=== PATIENT | male | born 1955 | race Caucasian/White ===

== ENCOUNTER → 2017-10-27 | Outpatient (CLI) | payer OTHER ==
[~2017-10-27] MED LIST: ASPIRIN EC325 M1 PO; BENADRYL25 MG PO; CELEBREX 200 M200 M1 PO; CENTRUM SILVER1 EAC4 PO; COLACE100 MG PO; GABAPENTIN 100100 MG PO; GLUCOSAMINE &1 EAC1 PO; HYDROCODON-ACE1 EAC7 PO; HYDROCODONE-AP1 EAC6 PO; IBUPROFEN 400400 M2 PO; LANSOPRAZOLE PO; METFORMIN HCL500 MG PO; MILK OF MA2400 MG/10 PO; MIRALAX17 GM PO; NAPROSYN500 MG PO; NEURONTIN 300300 M1 PO; NEURONTIN600 MG PO; NEXIUM40 MG PO; NORCO 10-325 T1 EACH PO; OXYCODONE HCL 55 MG PO; PERCOCET 5-3251 EACH PO; PERCOCET PO; VITAMIN B6 PO; XARELTO10 M1 PO; XARELTO10 MG PO; ZYRTEC10 MG PO
--- NOTE | 2017-11-04 15:40 | PAINCON ---
[address] [address] PAIN MANAGEMENT CONSULTATION Name: TABATHAKAREL Douglas Room: [facility]#: [id number] Admission: 10/27/17 Attend Phys: Edy Waddell MD Discharge: Date of : 51 Report #: [id number] THIS REPORT FOR: //name// CC: Yandel Waddell DATE OF SERVICE: 10/27/2017 FOLLOWUP HISTORY: The patient is a 61-year-old gentleman who has been seen in the Pain Clinic because of pain involving his low back, as well as some pain in his neck as well as bilateral foot pain. At this juncture, he has noted some worsening of his pain. He was at home doing some dusting activity. He noticed after dusting in some high places that he is having pain and discomfort, which is radiating down into his feet. Notes that this pain can worsen with prolonged walking. He has been treated in the past with epidural steroid injections and gleaned benefit from these. He generally gets greater than 50% relief after the injections. Last injection was in April 2017 where he received 60% benefit. He continues to take ibuprofen. Finds that gabapentin 600 mg is helpful. Still notes that activities such as carrying items for a prolonged time in his arms can exacerbate his discomfort. ALLERGIES: No known drug allergies. CURRENT MEDICATIONS: Nexium 40 mg daily, gabapentin 600 mg t.i.d., hydrocodone 5/325 one p.o. q. 4 hours p.r.n., ibuprofen 400 mg q. 6 hours p.r.n., metformin 500 mg b.i.d. PAIN CLINIC ASSESSMENT: 1. History of osteoarthritis: The patient states he is not being treated for osteoarthritis or rheumatoid arthritis. 2. Height 6 feet 0 inches, weight 220 pounds, BMI is 29. 3. Vital signs: Blood pressure 127/78, heart rate 52, respiratory rate is 16, room air saturation 96%, temperature 97.6. 4. Pain intensity: Rates the pain as 6/10. 5. Fall risk: The patient has not fallen in the last 3 months. 6. Blood thinner: The patient has not on a blood thinner. 7. History of hypertension: The patient states he is not being treated for hypertension. 8. Opioid therapy greater than 6 weeks. 9. Risk assessment tool. 10. Functional assessment tool. 11. Recreational drug use: Denies use of recreational drugs. 12. Tobacco: Denies use of tobacco at this juncture. He did smoke 34 years ago, developed chronic bronchitis and stopped. 13. Alcohol: Drinks one [place] [address] PAIN MANAGEMENT CONSULTATION Name: KAREL MAYS Room: [facility]#: [id number] Admission: 10/27/17 Attend Phys: Edy Waddell MD Discharge: Date of : 51 Report #: [id number] PHYSICAL EXAMINATION: GENERAL: The patient is a well-developed white male, who appears his stated age. Orientation: The patient is alert and oriented x 3. Affect: The patient's affect is appropriate. Speech is fluent. HEENT: Normocephalic, atraumatic. Extraocular eye muscles intact. Hearing is within normal limits. Conjunctivae are clear. Mucous membranes are moist. NECK: With some increased pain and discomfort in the neck with some decreased range of motion with left and right lateral bending, left and right lateral rotation, flexion, and extension. The neck is without JVD or adenopathy. CHEST: Clear to auscultation without rales. HEART: Regular rate. ABDOMEN: Nontender. MUSCULOSKELETAL: Without significant kyphosis, scoliosis, or lordosis. Upper extremities, strength is judged 5/5. The patient has some increased discomfort with a positive Spurling test. Cervical provocation testing including extension, rotation, left lateral flexion are met with increased pain, mild to moderate restriction. ASSESSMENT: 1. Cervical radiculopathy. 2. History of lumbar radiculopathy. 3. Cervical spinal stenosis, severe. 4. Displacement of cervical intervertebral disk with radiculopathy. 5. Cervical spondylosis with radiculopathy. 6. Neuropathy of the feet. 7. Diabetes, well controlled sugar with A1c 5.3. RECOMMENDATIONS: The patient has noticed some worsening of his pain after dusting. He is having some dull pain in his neck, which has increased. He has had similar pain in the past, which improved after a cervical epidural steroid injection. The patient will return at which time we will consider an additional cervical epidural steroid injection. The patient states that overall he has lost about 75 pounds. He has exercised more. A1c is in better shape at this juncture, it was 11.8 in the past, and it is down to 5.3. He used to trace blood sugars. He will return to the Pain Clinic, at which time he will undergo a cervical epidural steroid injection or a lumbar epidural steroid injection if his back is more problematic at this juncture. He will call us if he has any problems with his medications. We discussed the possible complications of epidural steroid injections. They can include increased blood sugars. The patient states that his blood sugar has been doing pretty well. He may even stop taking the Glucophage medicine in the future if his blood sugars remain normal. [facility] [address] [place] [address] PAIN MANAGEMENT CONSULTATION Name: KAREL MAYS Room: [facility]#: [id number] Admission: 10/27/17 Attend Phys: Edy Waddell MD Discharge: Date of : 51 Report #: [id number] We would like to thank you for letting us participate in his care. We hope he continues to improve. <ELECTRONICALLY SIGNED> By: Edy Waddell MD 11/04/17 1540 0005 [id number]. Leopoldo Waddell MD /PMT
== END ==
LOC: M.PC 03:03
DX: M47.22 Other spondylosis with radiculopathy, cervical region (principal); E11.9 Type 2 diabetes mellitus without complications; M48.02 Spinal stenosis, cervical region; G62.9 Polyneuropathy, unspecified

== ENCOUNTER → 2017-11-05 | Outpatient (CLI) | payer OTHER ==
--- NOTE | 2017-11-17 08:16 | PAINCON ---
[address] [address] PAIN MANAGEMENT CONSULTATION Name: KAREL MAYS Room: [facility].#: [id number] Admission: 11/05/17 Attend Phys: Edy Waddell MD Discharge: Date of : 51 Report #: [id number] THIS REPORT FOR: //name// CC: Yandel Waddell DATE OF SERVICE: 11/05/2017 CHIEF COMPLAINT: Pain in the lower portion of the back. "I have had some pain in my neck, but the back pain is worse." FOLLOWUP HISTORY: The patient is a 61-year-old gentleman who has been seen and followed in the pain clinic in the past because of cervical radiculopathy. He also has back pain and back problems. He has been experiencing pain in the lower portion of his back and down into his feet. He gleaned improvement by about 50%-60% after the cervical epidural steroid injection on 10/27/2017. He has continued to find benefit from that procedure. He has less headaches. At this juncture, he is experiencing pain, which radiates down into his low back and into his feet bilaterally. Epidural steroid injections in the past have been beneficial in that realm. At this point, he would like to proceed with another injection. He notes that activities such as walking, sitting, standing for a prolonged period of time exacerbates the pain and discomfort he is having in his lower back. Continues to use ibuprofen p.r.n. and gabapentin to help with pain control. ALLERGIES: No known drug allergies. CURRENT MEDICATIONS: Nexium 40 mg daily, gabapentin 600 mg t.i.d., hydrocodone 5/325 one p.o. q.4 hours p.r.n., metformin 500 mg b.i.d., ibuprofen 400 mg q. 6 hours p.r.n. pain. PAIN ASSESSMENT: 1. History of osteoarthritis. The patient has arthritic symptomatology in his lower back and neck area. 2. Height 6 feet, weight 215 pounds, BMI is 29. 3. Vital signs: Blood pressure 122/70, pulse 52, respiratory rate 16, room air saturation 95%, temperature 98.4. 4. Pain intensity is 5/10. 5. Fall risk. The patient has not fallen in the last 3 months. 6. Blood thinner. The patient is not on a blood thinner. 7. History of hypertension. The patient is not being treated for hypertension. 8. Opioid therapy greater than 6 weeks. The patient is not on opioid therapy greater than 6 weeks. 9. Risk assessment tool. 10. [place] [address] PAIN MANAGEMENT CONSULTATION Name: KAREL MAYS Room: [facility]#: [id number] Admission: 11/05/17 Attend Phys: Edy Waddell MD Discharge: Date of : 51 Report #: [id number] 11. Recreational drug use. Denies use of recreational drugs. 12. Tobacco. Denies use of tobacco, has not smoked in 34 years. 13. Alcohol: The patient drinks 1 glass of red wine weekly. PHYSICAL EXAMINATION: GENERAL: The patient is a well-developed white male, appears his stated age. He is alert and oriented x 3. Affect is appropriate. Speech is fluent. HEENT: Normocephalic, atraumatic. Extraocular eye muscles intact. Sclerae is nonicteric. Hearing is within normal limits. Mucous membranes are moist. NECK: The patient has some increased pain and discomfort in his neck with decreasing range of motion with left and right lateral bending, left and right lateral rotation, flexion and extension. HEART: Regular rate, normal S1, S2. LUNGS: Clear to auscultation without rales or rhonchi. ABDOMEN: Nontender. MUSCULOSKELETAL: Without significant kyphosis, scoliosis, or lordosis. Muscle strength in the upper extremities, judged to be 5/5. The patient has note of changes in his index finger areas with cold temperatures. Notes that the fingers can go from white to purple to red. LOW BACK: The patient has some pain radiating down into the posterior portion of his low back with pain radiating down into the right calf and involving both feet. IMPRESSION: 1. Lumbar radiculopathy. 2. History of cervical radiculopathy. 3. Cervical spinal stenosis/severe. 4. Displacement of cervical intervertebral disk with radiculopathy. 5. Cervical spondylosis with radiculopathy. 6. Neuropathy of feet. 7. Diabetes - well controlled with A1c of 5.3. 8. Raynaud's syndrome involving index fingers of left and right hand. RECOMMENDATIONS: We discussed treatment options with the patient. Risks and benefits of an epidural steroid injection were again reviewed. Possible complication of the procedure were discussed. The patient continues to have pain and discomfort in the L4-L5 distribution. We discussed injecting this area. Possible complication of the procedure, which could include but are not limited to infection, increased muscle soreness, headache, bleeding, worsening of pain, nerve damage, paralysis, and the patient elects to proceed. PROCEDURE NOTE: The patient was taken to the treatment area. He was then helped on the examination table. His back in the lower area was sterilely prepped with Betadine. 0.25% bupivacaine was then infiltrated at the L4-L5 interspace. Appropriate targeting was provided using anterior, posterior as well as lateral use of fluoroscopy. This area was then infiltrated with 0.25% [place] [address] PAIN MANAGEMENT CONSULTATION Name: KAREL MAYS Room: [facility]#: [id number] Admission: 11/05/17 Attend Phys: Edy Waddell MD Discharge: Date of : 51 Report #: [id number] bupivacaine. Total of 80 mg Depo-Medrol, 40 mg triamcinolone was injected. The patient tolerated the procedure well. There were no complications. He remained in the pain clinic for an appropriate amount of time. He will follow up in the future as needed. We would like to thank you for letting us participate in his care. We hope he continues to improve. <ELECTRONICALLY SIGNED> By: Edy Waddell MD 11/17/17 0816 1804 [id number]. Leopoldo Waddell MD /[facility]
== END | disposition home or self-care (01) ==
LOC: M.PC 01:29
DX: M54.16 Radiculopathy, lumbar region (principal); M48.02 Spinal stenosis, cervical region; M50.10 Cervical disc disorder with radiculopathy, unspecified cervical region; M47.22 Other spondylosis with radiculopathy, cervical region; E11.9 Type 2 diabetes mellitus without complications; I73.00 Raynaud's syndrome without gangrene; Z79.891 Long term (current) use of opiate analgesic; Z79.899 Other long term (current) drug therapy; Z98.890 Other specified postprocedural states

== ENCOUNTER → 2018-01-07 | Outpatient (CLI) | payer OTHER ==
--- NOTE | 2018-01-21 15:18 | PAINCON ---
[address] [address] PAIN MANAGEMENT CONSULTATION Name: KAREL MAYS Room: [facility].#: [id number] Admission: 01/07/18 Attend Phys: Edy Waddell MD Discharge: Date of : 53 Report #: [id number] THIS REPORT FOR: //name// CC: Yandel Waddell DATE OF SERVICE: 01/07/2018 FOLLOWUP COMPLAINT: "The pain improved in the past, but now, it has started to return. I would like to have another injection." FOLLOWUP HISTORY: The patient is a 62-year-old gentleman who has been followed in the Pain Clinic because of chronic pain. He has a history of cervical radiculopathy. At this juncture, he also has lumbar radiculopathy. He feels that the cervical portion is reasonably good at this point. Notes that the pain that is most problematic is that in his lower back with pain radiating down into his legs. He underwent an epidural steroid injection at the last visit, gleaned greater than 50-60% improvement. At this juncture, he would like to proceed with another lumbar epidural steroid injection. He has had no complications from them. He has not noted any significant changes or problems with his blood sugars. He continues to have some bilateral foot pain and discomfort. Also, he has bilateral knee pain. He is having some tingling in his calves bilaterally as well as some tingling in his feet. He has noted some sharp and shooting discomfort in the past. He continues to exercise. He continues to work on weight loss. Rates his pain and discomfort as a 3-4 with no activity. Feels that the gabapentin is helpful as well as [place], not having any problems with withdrawal or problems with his sensorium. He does note that if he goes from a sitting to a standing position quickly or from a stooping/squatting position to stand up, he sometimes notes a little bit of orthostatic change. Notes that if he does move slower, that is not problematic. ALLERGIES: No known drug allergies. CURRENT MEDICATIONS: Nexium 40 mg daily, gabapentin 600 mg t.i.d., hydrocodone 5/325 one p.o. q. 4-6 hours. p.r.n., metformin 500 mg b.i.d., ibuprofen 400 mg q. 6 hours p.r.n. PAIN ASSESSMENT: 1. The patient notes some arthritic changes in his neck as well as some in his knees. 2. Height 6 feet, weight 203 pounds, BMI is 27. 3. Vital signs: Blood pressure 106/69, heart rate 65, respiratory rate 16, room air saturation 97%, temperature 98.1. 4. Pain intensity: 3-4/10. 5. Fall risk: The patient has not fallen in the last 3 [place] [address] PAIN MANAGEMENT CONSULTATION Name: KAREL MAYS Room: [facility]#: [id number] Admission: 01/07/18 Attend Phys: Edy Waddell MD Discharge: Date of : 51 Report #: [id number] 6. Blood thinner: The patient is not on a blood thinning medication. 7. Hypertension: The patient is not being treated for hypertension. 8. Opioid therapy greater than 6 weeks: The patient is on some opioid medications and receives his medications from one source. 9. Risk assessment tool. 10. Functional assessment tool. 11. Recreational drug use: The patient denies use of recreational drugs. 12. Tobacco: The patient denies use of tobacco and has not smoked in the last 3-4 years. 13. Alcohol: The patient drinks one glass of alcoholic beverage, red wine, weekly. PHYSICAL EXAMINATION: GENERAL: The patient is a well-developed, well-nourished white male. He appears his stated age. He is alert and oriented x 3. His speech is fluent. HEENT: Normocephalic, atraumatic. Extraocular eye muscles intact. Sclerae nonicteric. Hearing within normal limits. Mucous membranes are moist. NECK: The patient has some pain and discomfort in his neck, but today, not having much discomfort. HEART: Regular rate. Normal S1, S2. LUNGS: Clear to auscultation without rales or rhonchi. ABDOMEN: Nontender. MUSCULOSKELETAL: Without significant kyphosis, scoliosis or lordosis. His muscle strength in the upper extremity is judged to be 5/5. The patient has noted less changes of color in his fingers because the weather has improved and it is much warmer. LOW BACK: The patient has pain that is radiating down the posterior portion of his legs bilaterally into the calf and into both feet. IMPRESSION: 1. Lumbar radiculopathy. 2. History of cervical radiculopathy. 3. Cervical spinal stenosis, severe. 4. Displacement of cervical intervertebral disk with radiculopathy. 5. Cervical spondylosis with radiculopathy. 6. Neuropathy of feet. 7. Diabetes, well controlled with A1c in the past. 8. Raynaud's syndrome involving fingers, less problematic given that the temperatures are greater than 80 degrees outside. RECOMMENDATIONS: We discussed treatment options with the patient. Risks and benefits of an epidural steroid injection were again reviewed. Possible complications which could include infection, increased muscle soreness, postdural puncture headache, muscle weakness, improvement, no improvement, and paralysis were discussed. The [place] [address] PAIN MANAGEMENT CONSULTATION Name: KAREL MAYS Room: [facility]#: [id number] Admission: 01/07/18 Attend Phys: Edy Waddell MD Discharge: Date of : 51 Report #: [id number] PROCEDURE NOTE: The patient was taken to the treatment area. He was assisted in getting on the table. His back was sterilely prepped with a Betadine solution. Fluoroscopy using anterior and posterior as well as lateral imaging were used to evaluate the appropriate placement of the needle. At L4-L5, 0.25% bupivacaine was infiltrated. A 17-gauge Tuohy with loss of resistance technique was used to gain access to the epidural space. There was no CSF, heme or paresthesia. A midline approach was used. A total of 80 mg of Depo-Medrol, 40 mg of triamcinolone and 2 mL of 0.25% bupivacaine was injected. The patient tolerated the procedure well. There were no complications. He remained in the Pain Clinic for an appropriate amount of time. He will follow up in the future as needed. The patient states that he may consider cervical epidural steroid injection in the future if needed. <ELECTRONICALLY SIGNED> By: Edy Waddell MD 01/21/18 1518 0936 [id number]. MD wanda Zurita
== END | disposition home or self-care (01) ==
LOC: M.PC 01:07
DX: M54.16 Radiculopathy, lumbar region (principal); G89.29 Other chronic pain; M48.02 Spinal stenosis, cervical region; M47.22 Other spondylosis with radiculopathy, cervical region; M50.10 Cervical disc disorder with radiculopathy, unspecified cervical region; E11.9 Type 2 diabetes mellitus without complications; I73.00 Raynaud's syndrome without gangrene; G62.9 Polyneuropathy, unspecified; Z98.890 Other specified postprocedural states; Z79.891 Long term (current) use of opiate analgesic; Z79.899 Other long term (current) drug therapy

== ENCOUNTER → 2018-01-19 | Outpatient (CLI) | payer OTHER ==
[2018-01-19 12:10] LABS: ALBUMIN 4.3 g/dL (3.4-5.0); CREATININE 0.8 mg/dL (0.6-1.3); POTASSIUM 3.9 mmol/L (3.5-5.1); TOTAL BILIRUBIN 0.7 mg/dL (<0.1-1.0)
== END ==
LOC: M.LAB 11:02
PROVIDERS: Internal Medicine
DX: E11.42 Type 2 diabetes mellitus with diabetic polyneuropathy (principal)

== ENCOUNTER → 2018-01-26 | Outpatient (CLI) | payer OTHER ==
--- NOTE | 2018-01-28 08:42 | PAINCON ---
[address] [address] PAIN MANAGEMENT CONSULTATION Name: KAREL MAYS Room: [facility]#: [id number] Admission: 01/26/18 Attend Phys: Edy Waddell MD Discharge: Date of : 51 Report #: [id number] THIS REPORT FOR: //name// CC: Yandel Waddell DATE OF SERVICE: 01/26/2018 PRIMARY CARE PHYSICIAN: Yandel Otoole MD. FOLLOWUP COMPLAINT: I would like to get another injection. It has been helpful. FOLLOWUP HISTORY: The patient is a 62-year-old gentleman who has been seen in the pain clinic because of chronic pain. As you recall, he has pain is back and down in his feet bilaterally. He has been told that he has some neuropathy. He has had some pain for quite some time. Notes that, he is not having as much sharp pain in his left foot, but he continues to have some pain and tingling, numbness into his feet. He feels overall that things are greater than 50% improved with the injections. He has returned to the pain clinic for another injection. Finds that the gabapentin 600 mg t.i.d. is helpful. He states that he was taking approximately 3600 in the past. He takes his medication 1800 mg in 1 dose, 3 tablets. [place] 5/325 1 p.o. q. 4 hours p.r.n. pain, episodically, Nexium 20 mg daily, Motrin 400 mg q.6 hours p.r.n., Glucophage 500 mg b.i.d. ALLERGIES: No known drug allergies. PAIN CLINIC ASSESSMENT: 1. The patient does have arthritic changes in his neck and some in his knees. 2. Height 6 feet, weight 198 pounds, BMI is 26.9. 3. Vital signs: Blood pressure 123/76, heart rate 65, respiratory rate 16, room air saturation 96%, temperature 98.4, saturation is 96%. 4. Pain intensity -11/03. 5. Fall risk. The patient has not fallen in the last 3 months. 6. Blood thinner. The patient is not on a blood thinning medication. 7. Hypertension. The patient has not been treated for hypertension. 8. Opioid therapy greater than 6 weeks. The patient is receiving his medications from 1 source, the pain clinic. 9. Risk assessment tool. 10. Functional assessment tool. 11. Recreational drug use. The patient denies use of recreational drugs. 12. Tobacco: The patient denies use of tobacco and has not smoked in the last 3-4 years. 13. Alcohol. The patient drinks 1 glass [place] [address] PAIN MANAGEMENT CONSULTATION Name: KAREL MAYS Room: [facility]#: [id number] Admission: 01/26/18 Attend Phys: Edy Waddell MD Discharge: Date of : 53 Report #: [id number] PHYSICAL EXAMINATION: GENERAL: The patient is a well-developed, well-nourished, white male. He appears his stated age. He has nice and tanned. He is alert and oriented x 3. His speech is fluent. HEENT: Normocephalic, atraumatic. Extraocular eye muscles intact. Sclerae nonicteric. Hearing within normal limits. Mucous membranes are moist. NECK: With some pain and discomfort in his neck, but not as uncomfortable it has been in the past. HEART: Regular rate, normal S1, S2. LUNGS: Clear to auscultation without rhonchi or rales. ABDOMEN: Nontender. MUSCULOSKELETAL: Without kyphosis, scoliosis or lordosis. Muscle strength in the upper extremity is judged to be 5/5. The patient has not had any change in the color of his fingers since we are now in weather that is greater than 90 degrees. LOW BACK: The patient has some pain that radiates down the posterior portion of his legs bilaterally into his calf and into his feet. IMPRESSION: 1. Lumbar radiculopathy. 2. History of cervical radiculopathy. 3. Cervical spinal stenosis. 4. Displacement of cervical intervertebral disk with radiculopathy. 5. Cervical spondylosis with radiculopathy. 6. Neuropathy of the feet. 7. Well controlled blood sugars with a good A1c. 8. Raynaud's syndrome involving fingers less problematic in the warm weather. RECOMMENDATIONS: We discussed treatment options with the patient. Risks and benefits of an epidural steroid injection were again reviewed. Possible complication of the procedure, which could include infection, worsening of pain, improvement in pain, no improvement in pain, spinal headache were discussed and the patient elects to proceed. PROCEDURE NOTE: The patient was placed in the prone position on the examination table. His back was sterilely prepped with a Betadine solution. Anterior, posterior as well as lateral viewing using fluoroscopy was instituted. The patient's back was sterilely prepped at the L4/L5 interspace. A 0.25% bupivacaine was infiltrated. A 17-gauge Tuohy with loss of resistance technique was used to gain access to the epidural space. There was no CSF, heme or paresthesia. Total of 80 mg Depo-Medrol, 40 mg triamcinolone and 2 mL of 0.25% bupivacaine was injected. The patient tolerated the procedure well. There were no complications. A total of 9 seconds fluoroscopy time was used. The patient was taken to the recovery room where he remained for an appropriate amount of time. Pain decreased to 1/10 at the time of discharge. He will follow up in the [place] [address] PAIN MANAGEMENT CONSULTATION Name: KAREL MAYS Room: [facility]#: [id number] Admission: 01/26/18 Attend Phys: Edy Waddell MD Discharge: Date of : 51 Report #: [id number] We would like to thank you for letting us participate in his care. We hope he continues to improve. <ELECTRONICALLY SIGNED> By: Edy Waddell MD 01/28/18 0842 1631 [id number]. Leopoldo Waddell MD /[facility]
== END | disposition home or self-care (01) ==
LOC: M.PC 05:32
DX: M51.16 Intervertebral disc disorders with radiculopathy, lumbar region (principal); M50.10 Cervical disc disorder with radiculopathy, unspecified cervical region; G62.9 Polyneuropathy, unspecified; I73.00 Raynaud's syndrome without gangrene; I10 Essential (primary) hypertension; F11.20 Opioid dependence, uncomplicated; Z79.899 Other long term (current) drug therapy

== ENCOUNTER → 2018-03-17 | Outpatient (CLI) | payer OTHER | LOC: M.CT 07:46 | DX: Z13.6 Encounter for screening for cardiovascular disorders (principal) ==

== ENCOUNTER → 2018-05-14 | Outpatient (CLI) | payer OTHER ==
[2018-05-14 09:01] LABS: CHOLESTEROL 185 mg/dL (<200); HDL CHOLESTEROL 81 mg/dL (>40); LDL CHOLESTEROL 94 mg/dL (<100); TC:HDL 2.3 Ratio (Not establshd); TRIGLYCERIDE 54 mg/dL (<150); VLDL 11 mg/dL (<40)
[2018-05-14 09:03] LABS: SERUM ASSESSMENT Clear
== END ==
LOC: M.LAB 08:14
PROVIDERS: Internal Medicine Cardiovascular Disease
DX: E78.2 Mixed hyperlipidemia (principal)

== ENCOUNTER → 2018-05-28 | Outpatient (CLI) | payer OTHER ==
[2018-05-28 07:53] LABS: CREATININE 0.8 mg/dL (0.6-1.3)
== END ==
LOC: M.LAB 07:00 → M.CT 08:00
PROVIDERS: Internal Medicine Cardiovascular Disease
DX: Z01.818 Encounter for other preprocedural examination (principal); I77.810 Thoracic aortic ectasia

== ENCOUNTER → 2018-06-16 | Outpatient (CLI) | payer OTHER ==
[2018-06-16 10:41] LABS: ABSOLUTE EOSINOPHILS 0.1 thou/uL (0.0-0.7); ABSOLUTE LYMPHOCYTES 1.5 thou/uL (0.8-5.3); ABSOLUTE MONOCYTES 0.4 thou/uL (0.0-1.2); ABSOLUTE NEUTROPHILS 4.1 thou/uL (1.6-8.1); BASOPHILS 0.7 %; EOSINOPHILS 0.8 %; HEMATOCRIT 45.2 % (42.0-52.0); HEMOGLOBIN 15.6 gm/dL (14.0-18.0); LYMPHOCYTES 24.3 %; MCH 31.7 pg (26.0-34.0); MCHC 34.5 g/dL (28.0-37.0); MCV 91.9 fL (80.0-100.0); MONOCYTES 6.6 %; NUCLEATED RBCS 0 /100WBC; PLATELET COUNT* 172 thou/uL (150-400); POLYS 67.6 %; RBC 4.91 mil/uL (4.50-6.00); RDW-CV 13.2 % (10.5-14.5)
[2018-06-16 10:50] LABS: ALBUMIN 4.1 g/dL (3.4-5.0); CALCIUM 8.4 mg/dL (8.5-10.1); CREATININE 0.7 mg/dL (0.6-1.3); POTASSIUM 3.7 mmol/L (3.5-5.1); TOTAL BILIRUBIN 0.9 mg/dL (<0.1-1.0); TOTAL PROTEIN 6.9 g/dL (6.4-8.2)
[2018-06-16 18:09] LABS: TESTOSTERONE 987 ng/dL (264-916)
[2018-06-17 02:08] LABS: GLYCOHEMOGLOBIN (HGB A1C) 5.1 % (4.8-5.6)
[2018-06-18 12:10] LABS: FREE TESTOSTERONE 22.8 pg/mL (6.6-18.1)
== END ==
LOC: M.LAB 10:16
PROVIDERS: Internal Medicine
DX: Z12.5 Encounter for screening for malignant neoplasm of prostate (principal); E11.42 Type 2 diabetes mellitus with diabetic polyneuropathy; R35.0 Frequency of micturition; E29.1 Testicular hypofunction; R53.82 Chronic fatigue, unspecified; Z79.899 Other long term (current) drug therapy

== ENCOUNTER → 2018-06-29 | Outpatient (CLI) | payer OTHER ==
--- NOTE | 2018-07-02 17:20 | PAINCON ---
[address] [address] PAIN MANAGEMENT CONSULTATION Name: KAREL MAYS [id number] Admission: 06/29/18 Attend Phys: Edy Waddell MD Discharge: Date of : 51 Report #: [id number] THIS REPORT FOR: //name// CC: Yandel Waddell DATE OF SERVICE: 06/29/2018 FOLLOWUP COMPLAINT: Pain has returned and improved by greater than 50% after last injection. FOLLOWUP HISTORY: The patient is a 62-year-old gentleman who has been followed in the pain clinic because of lumbar radiculopathy. Epidural steroid injections in the past have been quite beneficial. Has pain in his both feet as well as both knees. He has had this pain for quite a number of years. He has received greater than 60% improvement in pain after an epidural steroid injection. Last one was in 01/2018. Continues to have a tingling, numbness in his feet. The patient noted to help sometimes when he is lying in bed. Rates his pain as 5/10. Continues to use gabapentin 300 mg p.o. t.i.d. for a dose of 1800 mg. Feels that the [place] medication p.r.n. is beneficial as well. He would like to proceed with another epidural steroid injection. He has had no complications from their use. ALLERGIES: No known drug allergies. MEDICATIONS: Nexium 20 mg daily, gabapentin 600 mg p.o. t.i.d., hydrocodone 5/325 one p.o. q.4-6 hours p.r.n., ibuprofen 400 mg p.o. q. 6 hours p.r.n., and metformin 500 mg b.i.d. PAIN CLINIC ASSESSMENT AND PQRS: 1. The patient does have arthritic changes in his neck and some in his knees. The patient is not being treated for rheumatoid arthritis. 2. Height 6 feet, weight 204 pounds, BMI is 27.7. 3. Vital signs: Blood pressure 119/70, heart rate 67, respiratory rate 16, room air saturation 95%, and temperature 97.7. 4. Pain intensity 5/10. 5. Fall risk. The patient has not fallen in the last 3 months. 6. Blood thinner. The patient is not on a blood thinning medication. 7. Hypertension. The patient is not being treated for hypertension. 8. Opioids greater than 6 weeks. The patient is receiving his medications from one source, the pain clinic. 9. Risk assessment tool, low for opioid use. 10. Functional assessment tool. 11. Recreational drug use. The patient denies use of recreational drugs. 12. Tobacco: The patient denies use of tobacco and has not smoked in the last 3-4 [place] [address] PAIN MANAGEMENT CONSULTATION Name: KAREL MAYS Room: [facility]#: [id number] Admission: 06/29/18 Attend Phys: Edy Waddell MD Discharge: Date of : 51 Report #: [id number] 13. Alcohol: The patient denies use of alcoholic beverages except one glass weekly. PHYSICAL EXAMINATION: GENERAL: The patient is a well-developed, well-nourished white male. Appears his stated age. He is alert and oriented x 3. He is nicely tanned. 10. He is alert and oriented x 3. Speech is fluent. HEENT: Normocephalic, atraumatic. Extraocular eye muscles intact. Sclerae nonicteric. Mucous membranes are moist. The patient has some pain in his neck with pain that radiates into the shoulder area. HEART: Regular rate. S1, S2. LUNGS: Clear to auscultation without rhonchi or rales. ABDOMEN: Nontender. MUSCULOSKELETAL: Without kyphosis, scoliosis, or lordosis. Muscle strength in the upper extremity is judged to be 5/5. The patient has not had any changes in the finger. Has a history of Raynaud's syndrome. Low back pain radiates into posterior portion of his legs bilaterally down into his calf, into his feet with numbness, tingling, and weakness in the L5-L4 distribution. IMPRESSION: 1. Lumbar radiculopathy. 2. History of cervical radiculopathy. 3. Cervical spinal stenosis. 4. Displacement of cervical intervertebral disk with radiculopathy. 5. Cervical spondylosis with radiculopathy. 6. Neuropathy of feet. 7. Well controlled blood sugars, follow A1c. 8. Elevated calcium score in his cardiac scan exam. 9. Raynaud's syndrome involving fingers. RECOMMENDATIONS: We discussed treatment options with the patient. Risks and benefits of an epidural steroid injection were again reviewed. Possible complications of the procedure were discussed. They include but are not limited to infection, increased muscle soreness, headache, bleeding, worsening of pain, and no improvement in pain. The patient has undergone epidural steroid injection and gleaned greater than 60% improvement for a little over the past 4-5 months. He has returned today with a desire to undergo another injection given that he had such good result. He will return to the pain clinic. After his insurance company states that he is able to undergo an injection, we will proceed with an epidural steroid injection in the L4-L5 area. He will call us if [place] [address] PAIN MANAGEMENT CONSULTATION Name: KAREL MAYS Room: [facility]#: [id number] Admission: 06/29/18 Attend Phys: Edy Waddell MD Discharge: Date of : 51 Report #: [id number] We would like to thank you for letting us participate in his care. We hope he continues to improve. <ELECTRONICALLY SIGNED> By: Edy Waddell MD 07/02/18 1720 [id number]. Leopoldo Waddell MD /nt
== END ==
LOC: M.PC 05:25
DX: M47.22 Other spondylosis with radiculopathy, cervical region (principal); M50.10 Cervical disc disorder with radiculopathy, unspecified cervical region; M48.02 Spinal stenosis, cervical region; I73.00 Raynaud's syndrome without gangrene; R93.1 Abnormal findings on diagnostic imaging of heart and coronary circulation; G62.9 Polyneuropathy, unspecified

== ENCOUNTER → 2018-08-03 | Outpatient (CLI) | payer OTHER ==
[~2018-08-03] MED LIST changes: +ASPIRIN325 PO; +LIPITOR10 MG PO; +NORVASC2.5 M1 PO
--- NOTE | ~2018-08-03 | PAINCON ---
[address] [address] PAIN MANAGEMENT CONSULTATION Name: KAREL MAYS Room: [facility].#: [id number] Admission: 08/03/18 Attend Phys: Edy Waddell MD Discharge: Date of : 51 Report #: [id number] THIS REPORT FOR: //name// CC: Yandel Waddell DATE OF SERVICE: 08/03/2018 CHIEF COMPLAINT: "Here for another injection, pain improved after the last." HISTORY: The patient is a 62-year-old gentleman who has been followed in the Pain Clinic because of chronic lumbar radiculopathy. He has undergone epidural steroid injections and gleaned benefits from these. He has had back surgery in the past. He has noted recurrence of his pain, which is more problematic. He also has some problems with numbness and tingling in his feet. He feels that the gabapentin medication is helpful in that area. He has noticed more vascular changes in his hands secondary to the Raynaud's syndrome. He notes that his fingers have become very red, white and blue. ALLERGIES: No known drug allergies. CURRENT MEDICATIONS: Nexium 20 mg daily, gabapentin 600 mg t.i.d., hydrocodone 5/325s one p.o. q. four to six hours p.r.n., ibuprofen 400 mg, metformin 500 mg b.i.d. PAIN CLINIC ASSESSMENT/PQRS: 1. The patient does have arthritic changes in his neck and knees. He is not being treated for rheumatoid arthritis. 2. He is 6 feet, weight 207 pounds, BMI is 27.9. 3. Vital Signs: Blood pressure 122/71, heart rate 51, respiratory rate 16, room air saturation is 96%, temperature 98.1. 4. Pain intensity: 6/10. 5. Fall risk: The patient has not fallen in the last 3 months. 6. Blood thinner: The patient is not on a blood thinning medication. 7. Hypertension: The patient is not being treated for hypertension. 8. Opioids greater than 6 weeks: The patient is receiving medications from one source, Pain Clinic. 9. Risk assessment tool: Low for use of opioids. 10. Functional assessment tool. 11. Recreational drug use: The patient denies use of recreational drug use. 12. Tobacco: The patient denies use of tobacco and has not smoked in the last 3-4 years. 13. Alcohol: The patient denies use of alcoholic beverages except one glass weekly. PHYSICAL EXAMINATION: [address] [place] [address] PAIN MANAGEMENT CONSULTATION Name: KAREL MAYS Room: [facility]#: [id number] Admission: 08/03/18 Attend Phys: Edy Waddell MD Discharge: Date of : 53 Report #: [id number] GENERAL: The patient is a well-developed, well-nourished white male. He appears his stated age. He is alert and oriented x 3. His affect is appropriate. Speech is fluent. HEENT: Normocephalic, atraumatic. Extraocular eye muscles intact. Sclerae nonicteric. Mucous membranes are moist. NECK: Without adenopathy or JVD. HEART: Regular rate, S1 and S2. LUNGS: Clear to auscultation, without rhonchi or rales. ABDOMEN: Nontender. Bowel sounds present. MUSCULOSKELETAL: Without significant scoliosis, kyphosis or lordosis. Muscle strength in the upper extremities judged to be 5/5. The patient has some pain and discomfort in the fingers. He notes that Raynaud's syndrome problems have been more problematic since the weather has gotten colder. IMPRESSION: 1. Lumbar radiculopathy. The patient has pain and discomfort radiating down into his legs in the L4-L5 dermatomal distribution bilaterally. 2. History of cervical radiculopathy. 3. Cervical spinal stenosis. 4. Displacement of cervical intervertebral disc with radiculopathy. 5. Cervical spondylosis with radiculopathy. 6. Neuropathy of the feet. 7. Well controlled blood sugars with low A1c. 8. Elevated calcium scores. 9. Raynaud's syndrome involving his fingers. RECOMMENDATIONS: We discussed treatment options with the patient. Risks and benefits of an epidural steroid injection were again reviewed. Possible complications of the procedure were discussed. The patient feels at this time that the epidural steroid injections continue to be beneficial. He would like to proceed with an injection; he has had no complications, got greater than 60% improvement, and would like to proceed today. He also is noticing increased problems with his fingers secondary to Raynaud's syndrome. He has noticed that his fingers will turn red, white and blue. Overall, he continues to have some numbness and tingling down in his feet as well. We will proceed with an epidural steroid injection at the L4-L5 interspace. We will also have the patient try Norvasc, calcium channel pat, to help decrease the spasms associated with Raynaud's. He will monitor his feelings when going from a sitting to a standing position. We have explained that sometimes with use of antihypertensive medications, people might note some changes. PROCEDURE NOTE: The patient was taken to the procedure area. He was assisted in getting on the examination table. His back was sterilely prepped with a Betadine solution. Fluoroscopy using anterior and posterior as well as lateral viewing was implemented. The patient's back using a midline approach was treated. A 0.25% bupivacaine was infiltrated using a 25-[place] [address] PAIN MANAGEMENT CONSULTATION Name: KAREL MAYS Room: [facility]#: [id number] Admission: 08/03/18 Attend Phys: Edy Waddell MD Discharge: Date of : 51 Report #: [id number] midline approach was undertaken with a 17-gauge Tuohy with loss of resistance technique. A total of 80 mg Depo-Medrol, 40 mg triamcinolone and 2 mL of 0.25% bupivacaine was injected. The patient tolerated the procedure well. Pain decreased to 2 at the time of discharge. The patient will continue to monitor his sensorium as a result of using the antihypertensive medication to help with his Raynaud's syndrome. By: [id number]. Leopoldo Waddell MD /nt
== END | disposition home or self-care (01) ==
LOC: M.PC 10:20
DX: M54.16 Radiculopathy, lumbar region (principal); G89.29 Other chronic pain; M48.02 Spinal stenosis, cervical region; G62.9 Polyneuropathy, unspecified; I73.00 Raynaud's syndrome without gangrene; Z79.899 Other long term (current) drug therapy; Z79.891 Long term (current) use of opiate analgesic; Z98.890 Other specified postprocedural states

== ENCOUNTER → 2018-08-31 | Outpatient (CLI) | payer OTHER ==
[~2018-08-31] MED LIST changes: +HYDROCODON-ACE1 EAC5 PO; +NORVASC5 MG PO
--- NOTE | ~2018-08-31 | PAINCON ---
[address] [address] PAIN MANAGEMENT CONSULTATION Name: KAREL MAYS [id number] Admission: 08/31/18 Attend Phys: Edy Waddell MD Discharge: Date of : 53 Report #: [id number] THIS REPORT FOR: //name// CC: Yandel Waddell DATE OF SERVICE: 08/31/2018 CHIEF COMPLAINT: Pain in the low back with pain down into the feet. HISTORY: The patient is a 62-year-old gentleman, who has been followed in the pain clinic because of chronic pain with lumbar radiculopathy. He has undergone back surgeries in the past. He returns today indicating that he is having pain in the lower portion of his back that is radiating down into his feet. He notes some improvement in numbness and tingling in his feet. He also has noticed that his pain is less intense. He has some problems with cervical radiculopathy in the past. He would like to consider a cervical epidural steroid injection in the near future. He rates his pain as a 4/10 at this juncture. He is taking his medications as prescribed. He does have Raynaud's syndrome involving his fingers. He has been using Norvasc. He is not sure whether or not this has been helpful. He is not having any problems with the medication. CURRENT MEDICATIONS: Nexium 20 mg daily, gabapentin 600 mg t.i.d., hydrocodone 5/325 one p.o. q.4-6 hours, ibuprofen 400 mg, and metformin 500 mg b.i.d. ALLERGIES: No known drug allergies. PAIN CLINIC ASSESSMENT AND PQRS: 1. The patient does have arthritic changes in his knees and neck. He has not been treated for rheumatoid arthritis. 2. Pain intensity is 4/10. 3. Fall history: The patient has not fallen in the last 3 months. 4. Blood thinner. The patient is not on a blood thinning medication. 5. Opioids greater than 6 weeks. The patient is receiving medications from the pain clinic. 6. Risk assessment tool, low for opioid use. 7. Functional assessment tool. 8. Recreational drug use. The patient denies use of recreational drugs. 9. Tobacco. The patient denies use of tobacco. He has not smoked in the last 3-4 years. 10. Alcohol. The patient denies use of alcoholic beverages. He drinks one glass weekly. PHYSICAL EXAMINATION GENERAL: The patient is a well-developed, well-nourished white male. He appears his stated age. He is alert and oriented x 3[place] [address] PAIN MANAGEMENT CONSULTATION Name: KAREL MAYS [facility] [id number] Admission: 08/31/18 Attend Phys: Edy Waddell MD Discharge: Date of : 51 Report #: [id number] appropriate. Speech is fluent. Height is 6 feet 0 inches, weight is 202 pounds, and BMI is 27.4. VITAL SIGNS: Blood pressure is 146/90, heart rate is 57, respiratory rate is 16, room air saturation is 98%, and temperature is 97.7. HEENT: Normocephalic, atraumatic. Extraocular eye muscles intact. Sclerae nonicteric. The patient wears glasses. NECK: Without adenopathy or JVD. HEART: Regular rate. S1, S2. LUNGS: Clear to auscultation without rhonchi or rales. EXTREMITIES: Upper extremity muscle strength is judged to be 5/5 for the major muscle groups. The patient has some discomfort in his fingers associated with Raynaud's syndrome. He notes some worsening of pain as a result of the colder weather outside. It has been 0-20 degrees in the last few days. IMPRESSION: 1. Lumbar radiculopathy with history of pain radiating down into his legs in the L4-L5 dermatomal distribution. 2. History of cervical radiculopathy. 3. Cervical spinal stenosis. 4. Displacement of cervical intervertebral disk with radiculopathy. 5. Cervical spondylosis with radiculopathy. 6. Neuropathy of the feet. 7. Well controlled blood sugars with low A1c. 8. Elevated calcium scores. 9. Raynaud's syndrome involving his fingers. RECOMMENDATIONS: We have discussed treatment options with the patient. We will continue with his current medications. A script for hydrocodone 10/325 one p.o. b.i.d. have been written. The patient will also try a higher dose of amlodipine, he was on 2.5 mg, we will increase it to 5 mg. Hopefully, he will notes improvement in his Raynaud's syndrome and ischemia in his hands. We will proceed with an epidural steroid injection. Risks and benefits of a lumbar epidural steroid injection were again reviewed. They include but are not limited to infection, no improvement in pain, bleeding, worsening of pain, and possible nerve trauma with paralysis. The patient elects to proceed. PROCEDURE NOTE: The patient was taken to the procedure area. He was assisted in getting on the examination table. His back was sterilely prepped with a Betadine solution. A pillow was placed under his abdomen to bolster and improve positioning. A 0.25% bupivacaine was infiltrated at the L4-L5 interspace. Fluoroscopy using anterior, posterior as well as lateral viewing were implemented. A 17-gauge Tuohy with loss of resistance technique was used to gain access to the epidural space. There was no CSF, heme, or paresthesia. A total of 80 mg Depo-Medrol, 40 mg triamcinolone, and 2 mL of 0.25% bupivacaine was injected. The patient tolerated the procedure well. A total of about 11 seconds fluoroscopy time was used. The patient [place] [address] PAIN MANAGEMENT CONSULTATION Name: KAREL MAYS [facility] [id number] Admission: 08/31/18 Attend Phys: Edy Waddell MD Discharge: Date of : 53 Report #: [id number]. He would like to proceed with a cervical epidural steroid injection at the next visit. We would like to thank you for letting us to participate in his care. We hope he continues to improve. By: [id number]. Leopoldo Waddell MD /DEREJE
== END | disposition home or self-care (01) ==
LOC: M.PC 04:43
DX: M54.16 Radiculopathy, lumbar region (principal); G89.29 Other chronic pain; M48.02 Spinal stenosis, cervical region; G62.9 Polyneuropathy, unspecified; I73.00 Raynaud's syndrome without gangrene; Z79.891 Long term (current) use of opiate analgesic; Z79.899 Other long term (current) drug therapy; Z79.82 Long term (current) use of aspirin; Z98.890 Other specified postprocedural states

== ENCOUNTER → 2018-10-19 | Outpatient (CLI) | payer OTHER ==
--- NOTE | ~2018-10-19 | PAINCON ---
[address] [address] PAIN MANAGEMENT CONSULTATION Name: KAREL MAYS [id number] Admission: 10/19/18 Attend Phys: Edy Waddell MD Discharge: Date of : 51 Report #: [id number] THIS REPORT FOR: //name// CC: Yandel Waddell DATE OF SERVICE: 10/19/2018 CHIEF COMPLAINT: Cervical neck pain. HISTORY OF PRESENT ILLNESS: The patient is a 62-year-old gentleman who has been followed in the Pain Clinic because of pain and discomfort in his low back area as well as some pain in the cervical area. His cervical area is most problematic today. He has returned with the desire to undergo an epidural steroid injection. He rates his pain as a 7/10. It involves the upper extremity with pain that is worse when he is turning his head from side to side. He has been having some headaches as a result of this. He has seen a chiropractor in the past. He would like to undergo a cervical epidural steroid injection to gain relief from his pain. He feels that his hand is much better now that the weather has subsided. As you may recall, he suffers from Raynaud's syndrome. He was started on a low dose of amlodipine 5 mg. He feels that he has less soreness in his hands, there is greater circulation. ALLERGIES: No known drug allergies. CURRENT MEDICATIONS: Nexium 20 mg daily, gabapentin 600 mg t.i.d., hydrocodone 5/325 one p.o. q. 4-6 hours, ibuprofen 400 mg, metformin 500 mg b.i.d., amlodipine 5 mg daily. PAIN CLINIC ASSESSMENT AND PQRS: 1. The patient has some arthritic changes in his low back as well as in his knees. He has some changes in his neck. He is not being treated for rheumatoid arthritis. 2. Pain intensity: 7/10. 3. Height 6 feet 0 inch, weight 205 pounds, BMI is 28.1. 4. Vital signs: Blood pressure 127/77, heart rate 69, respiratory rate 16, room air saturation 98%, temperature 98.0. 5. Fall history: The patient has not fallen in the last 3 months. 6. Blood thinner: The patient is not on a blood thinning medication. 7. Opioids greater than 6 weeks: The patient does use opioid medications, 1 p.o. b.i.d., to help control the pain. 8. Risk assessment tool: Low for opioid use. 9. Functional assessment tool. 10. Recreational drug use: The patient denies use of recreational drugs. 11. Tobacco: The patient denies use of tobacco. He has not smoked in the last 3-4 [place] [address] PAIN MANAGEMENT CONSULTATION Name: TABATHAKAREL Douglas Room: [facility]#: [id number] Admission: 10/19/18 Attend Phys: Edy Waddell MD Discharge: Date of : 53 Report #: [id number] 12. Alcohol: The patient denies use of alcoholic beverages. He drinks a glass of wine on occasion. PHYSICAL EXAMINATION: GENERAL: The patient is a well-developed, well-nourished, white male. He appears his stated age. He is alert and oriented x 3. His affect is appropriate. Speech is fluent. HEENT: Normocephalic, atraumatic. Extraocular eye muscles are intact. Sclerae nonicteric. Mucous membranes are moist. NECK: Without adenopathy or JVD. The patient has pain and discomfort with pain radiating down into his hands. NECK: Without adenopathy or JVD. HEART: Regular rate. S1 and S2. LUNGS: Clear to auscultation without rhonchi or rales. MUSCULOSKELETAL: Upper extremity muscle strength is judged to be 5-/5 for the major muscle groups in the upper extremity. The patient notes less color changes with the Raynaud's syndrome. IMPRESSION: 1. Cervical radiculopathy with exacerbation of cervical pain with a request for cervical epidural steroid injection at this juncture. 2. Lumbar radiculopathy with history of pain radiating down into his legs in the L4-L5 dermatomal distribution. 3. Cervical spinal stenosis. 4. Displacement of cervical intervertebral disk with radiculopathy. 5. Cervical spondylosis with radiculopathy. 6. Neuropathy of feet. 7. Well controlled blood sugars with low A1c. 8. Elevated calcium score. 9. Raynaud's syndrome involving his fingers, improved with his current use of amlodipine. RECOMMENDATIONS: We discussed treatment options with the patient. Risks and benefits of a cervical epidural steroid injection were discussed. They include but are not limited to infection, worsening of pain, no improvement in pain, trauma, bleeding, and increased muscle soreness. The patient elects to proceed. PROCEDURE NOTE: The patient was taken to the procedure area. He was placed in the prone position. A pillow was placed under the chest to bolster and improve positioning. Fluoroscopy using anterior and posterior as well as lateral viewing were implemented. The patient's neck was sterilely prepped with betadine solution and allowed to dry. A midline approach at the C7-T1 interspace was undertaken. After 0.25% bupivacaine was infiltrated with a 25-gauge needle to anesthetize the area, a 17-gauge Tuohy with loss of resistance technique using a midline approach was performed at the C7-T1 interspace. A total of 120 mg triamcinolone was injected. The patient [facility] [address] [place] [address] PAIN MANAGEMENT CONSULTATION Name: KAREL MAYS Room: [facility]#: [id number] Admission: 10/19/18 Attend Phys: Edy Waddell MD Discharge: Date of : 51 Report #: [id number] tolerated the procedure well. There were no complications. Total fluoroscopy time was 32 seconds. The patient remained in the Pain Clinic for an appropriate amount of time. He will follow up in the future as needed. We would like to thank you for letting us participate in his care. We hope he continues to improve. By: [id number]. Leopoldo Waddell MD /nt
== END | disposition home or self-care (01) ==
LOC: M.PC 10-14 11:50
DX: M50.10 Cervical disc disorder with radiculopathy, unspecified cervical region (principal); M48.02 Spinal stenosis, cervical region; G89.29 Other chronic pain; G62.9 Polyneuropathy, unspecified; I73.00 Raynaud's syndrome without gangrene; Z98.890 Other specified postprocedural states; Z79.899 Other long term (current) drug therapy; Z79.891 Long term (current) use of opiate analgesic; Z79.82 Long term (current) use of aspirin

== ENCOUNTER → 2018-11-16 | Outpatient (CLI) | payer OTHER ==
--- NOTE | ~2018-11-16 | PAINCON ---
[address] [address] PAIN MANAGEMENT CONSULTATION Name: KAREL MAYS Room: [facility]#: [id number] Admission: 11/16/18 Attend Phys: Edy Waddell MD Discharge: Date of : 51 Report #: [id number] THIS REPORT FOR: //name// CC: Yandel Waddell DATE OF SERVICE: 11/16/2018 CHIEF COMPLAINT: "Here for an injection in the neck area. My neck area is worse in the back today." HISTORY: The patient is a 62-year-old gentleman who has been followed in the Pain Clinic because of cervical radiculopathy. He also has lumbar radiculopathy. He has undergone epidural steroid injections in the lumbar area in the past. These have been fruitful. At this point, his pain is most problematic in the neck area. He has undergone epidural steroids in that area and found them helpful as well. He rates his pain today as a 3-4/10. He has been seeing a chiropractor. He claims some relief from the chiropractic treatment. ALLERGIES: No known drug allergies. CURRENT MEDICATIONS: Nexium 20 mg daily, gabapentin 600 mg t.i.d., hydrocodone 5/325 one p.o. q. 4-6 hours, ibuprofen 400 mg, metformin 500 mg b.i.d., amlodipine 5 mg. PAIN CLINIC ASSESSMENT AND PQRS: 1. The patient has pain in the cervical area with pain that radiates down into his arms. He has less pain and discomfort in his low back. He is not being treated for rheumatoid arthritis. 2. Height 6 feet 0 inch, weight 207 pounds, BMI is 28.2. 3. Vital signs: Blood pressure 137/78, heart rate 69, respiratory rate 16, room air saturation 96%, temperature 98.1. 4. Pain intensity: When he is stable, it is 0/10; with activity and turning his head, 3-4/10. 5. Blood thinner: The patient is not on a blood thinning medication. 6. Opioids greater than 6 weeks: The patient uses hydrocodone p.r.n. 7. Risk assessment tool: Low for opioid use. 8. Functional assessment tool. 9. Recreational drug use: The patient denies use of recreational drugs. 10. Tobacco: The patient denies use of tobacco. He last smoked cigarettes about 3-4 years ago. 11. Alcohol: The patient denies use of alcoholic beverages on a regular basis. He drinks a glass of wine on occasion. PHYSICAL EXAMINATION: [place] [address] PAIN MANAGEMENT CONSULTATION Name: KAREL MAYS Room: [facility]#: [id number] Admission: 11/16/18 Attend Phys: Edy Waddell MD Discharge: Date of : 51 Report #: [id number] GENERAL: The patient is a well-developed, well-nourished, white male. Appears his stated age. He is alert and oriented x 3. His affect is appropriate. Speech is fluent. HEENT: Normocephalic, atraumatic. Extraocular eye muscles intact. Sclerae nonicteric. Mucous membranes are moist. NECK: Without adenopathy or JVD. The patient has some pain and discomfort that is radiating down into his hands. NECK: Without adenopathy or JVD. HEART: Regular rate, S1 and S2. LUNGS: Clear to auscultation without rhonchi or rales. MUSCULOSKELETAL: Upper extremity muscle strength is judged to be 5-/5 for the major muscle groups in the upper extremity. The patient has normal color in his hands. He does have a history of Raynaud's syndrome. IMPRESSION: 1. Cervical radiculopathy with exacerbation of cervical pain with request for cervical epidural steroid injection. 2. Lumbar radiculopathy with history of pain radiating down to his leg in the L4-L5 dermatomal distribution. 3. Cervical spinal stenosis. 4. Displacement of cervical intervertebral disk with radiculopathy. 5. Cervical spondylosis with radiculopathy. 6. Neuropathy of feet. 7. Well controlled blood sugars. 8. Elevated calcium score. 9. Raynaud's syndrome involving his fingers. The patient is not taking amlodipine now that the weather has warmed. RECOMMENDATIONS: We discussed treatment options with the patient. Risks and benefits of a cervical epidural steroid injection were discussed. They include but are not limited to infection, worsening of pain, no improvement in pain, nerve trauma, and the patient elects to proceed. PROCEDURE NOTE: The patient was taken to the procedure room. A pillow was placed under his shoulders. Fluoroscopy was used to gain access to the injection site using anterior as well as lateral viewing. His back was sterilely prepped with betadine solution and allowed to dry. 0.25% bupivacaine was infiltrated at the C7-T1 interspace. A 17-gauge Tuohy with loss of resistance technique was used to gain access to the epidural space. There was no CSF, heme or paresthesia. A total of 80 mg Depo-Medrol, a total of 120 mg triamcinolone was injected. The patient tolerated the procedure well. He remained in the Pain Clinic for an appropriate amount of time. A total of 37 seconds fluoroscopy time was used. [facility] [address] [place] [address] PAIN MANAGEMENT CONSULTATION Name: KAREL MAYS [id number] Admission: 11/16/18 Attend Phys: Edy Waddell MD Discharge: Date of : 53 Report #: [id number] We would like to thank you for letting us participate in his care. We hope he continues to improve. By: [id number]. Leopoldo Waddell MD /nt
== END | disposition home or self-care (01) ==
LOC: M.PC 04:51
DX: M50.10 Cervical disc disorder with radiculopathy, unspecified cervical region (principal); M47.22 Other spondylosis with radiculopathy, cervical region; M48.02 Spinal stenosis, cervical region; G62.9 Polyneuropathy, unspecified; I73.00 Raynaud's syndrome without gangrene; Z98.890 Other specified postprocedural states; Z79.899 Other long term (current) drug therapy; Z79.891 Long term (current) use of opiate analgesic; Z87.891 Personal history of nicotine dependence; Z79.82 Long term (current) use of aspirin

== ENCOUNTER → 2019-02-17 | Outpatient (CLI) | payer MEDICARE ==
--- NOTE | ~2019-02-17 | PAINCON ---
[address] [address] PAIN MANAGEMENT CONSULTATION Name: KAREL MAYS Room: [facility] Nya#: [id number] Admission: 02/17/19 Attend Phys: Edy Waddell MD Discharge: Date of : 53 Report #: [id number] THIS REPORT FOR: //name// CC: Yandel Waddell DATE OF SERVICE: 02/17/2019 CHIEF COMPLAINT: The left shoulder is bad again. HISTORY: The patient is a 63-year-old gentleman who has been followed in the pain clinic because of cervical radiculopathy. He has undergone epidural steroid injections in the past and gleaned benefits from these. Return to the pain. He returned to the pain clinic today indicating that his pain has increased. He is contemplating, going on vacation in a [facility] to [place]. He has undergone epidural steroid injections in the past and gleaned 85% improvement after the last injection for about 3 months. He continues to follow up with his chiropractor. He rates his pain while sitting as a 5/10 and as a 7/10 when he is moving his head. He notes walking, sitting, standing can be problematic. He therefore would like to proceed with another injection given that he has received a significant amount of improvement at each injection. ALLERGIES: No known drug allergies. CURRENT MEDICATIONS: Nexium 20 mg, gabapentin 600 mg t.i.d., hydrocodone 5/325 one p.o. q.4-6 hours, ibuprofen 400 mg, metformin 500 mg b.i.d., amlodipine 5 mg. PAIN CLINIC ASSESSMENT/PQRS: 1. The patient has pain in the cervical area with pain that radiates down into his left arm. He is not being treated for rheumatoid arthritis. 2. Height 6 feet 0, weight 213 pounds, BMI is 28.9. 3. VITAL SIGNS: Blood pressure 112/69, heart rate 68, respiratory rate 16, room air saturation is 95%, temperature 98.1. 4. Pain intensity 5/10 with sitting, 7/10 with movement of his head. 5. Blood thinner. The patient is not on a blood thinning medication. 6. Opioids greater than 6 weeks. The patient uses hydrocodone p.r.n. from the pain clinic. 7. Recreational drug use. The patient denies. 8. Tobacco: The patient denies use of tobacco, has smoked cigarettes in the past, stopped about 4 years ago. 9. Alcohol: The patient denies use of alcoholic beverages on a regular basis. PHYSICAL EXAMINATION: GENERAL: The patient is a well-developed, well-n[place] [address] PAIN MANAGEMENT CONSULTATION Name: KAREL MAYS [id number] Admission: 02/17/19 Attend Phys: Edy Waddell MD Discharge: Date of : 53 Report #: [id number] his stated age. He is alert and oriented x 3. His affect is appropriate. Speech is fluent. HEENT: Normocephalic, atraumatic. Extraocular eye muscles intact. Sclerae nonicteric. Mucous membranes are moist. The patient has pain and discomfort involving the right arm or left arm with pain that radiates down into his hand. HEART: Regular rate. S1, S2. LUNGS: Clear to auscultation without rhonchi or rales. MUSCULOSKELETAL: Upper extremity muscle strength judged to be 5-/5 for the major muscle groups in the upper extremity. The patient has a well-healed scar in the lower portion of his back. Has a history of Raynaud's syndrome, hands are normal. Temperature outside is in the high 80s. IMPRESSION: 1. Cervical radiculopathy with cervical pain. 2. Lumbar radiculopathy with history of pain that radiates down to his leg L4-L5 dermatomal distribution. 3. Cervical spinal stenosis. 4. Displacement of cervical intervertebral disk with radiculopathy. 5. Cervical spondylosis with radiculopathy. 6. Neuropathy of the feet. 7. Well controlled blood sugars. 8. Elevated calcium score. 9. Raynaud's syndrome involving his fingers. The patient is not taking amlodipine in the warm weather. RECOMMENDATIONS: We discussed treatment options with the patient. Risks and benefits of a cervical epidural steroid injection were discussed. They include but are not limited to infection, worsening of pain, no improvement in pain, bleeding, nerve damage and the patient elects to proceed. PROCEDURE NOTE: The patient was taken to the procedure area. He was then assisted in getting on the examination table. A pillow was placed under his shoulders. This was used to bolster and improve positioning. Fluoroscopy using anterior, posterior as well as lateral viewing were implemented. The patient's back was sterilely prepped with a Betadine solution and allowed to dry. A 25-gauge needle was then used to administer 0.25% bupivacaine at the C6-C7 area. A 17-gauge Tuohy was then advanced into the epidural space after it had been anesthetized. Aspiration was negative. Total of 120 mg triamcinolone was injected. The patient tolerated the procedure well. He remained in the pain clinic for an appropriate amount of time. He will follow up in the future as needed. We would like to thank you for letting us participate in his care. We hope he continues to improve. A script for medications of hydrocodone 10/325 one p.o. 60 tablets per month for 2 months has been written. A script for gabapentin 600 mg 1 p.o. t.i.d. [place] [address] PAIN MANAGEMENT CONSULTATION Name: KAREL MAYS Room: [facility]#: [id number] Admission: 02/17/19 Attend Phys: Edy Waddell MD Discharge: Date of : 53 Report #: [id number] We would like to thank you for letting us participate in his care. We hope he continues to improve. By: [id number]. Leopoldo Waddell MD /nt
== END | disposition home or self-care (01) ==
LOC: M.PC 05:07
DX: M50.123 Cervical disc disorder at C6-C7 level with radiculopathy (principal); M48.02 Spinal stenosis, cervical region; M47.22 Other spondylosis with radiculopathy, cervical region; G89.29 Other chronic pain; G62.9 Polyneuropathy, unspecified; Z98.890 Other specified postprocedural states; Z79.899 Other long term (current) drug therapy; Z79.891 Long term (current) use of opiate analgesic; Z87.891 Personal history of nicotine dependence; Z79.82 Long term (current) use of aspirin

== ENCOUNTER → 2019-07-12 | Outpatient (CLI) | payer MEDICARE, OTHER ==
--- NOTE | 2019-07-26 14:48 | PAINCON ---
[address] [address] PAIN MANAGEMENT CONSULTATION Name: KAREL MAYS Room: [facility] Nya#: [id number] Admission: 07/12/19 Attend Phys: Edy Waddell MD Discharge: Date of : 53 Report #: [id number] THIS REPORT FOR: //name// CC: Yandel Waddell DATE OF SERVICE: 07/12/2019 CHIEF COMPLAINT: "Pain in the neck has returned. It is worse than the pain in my low back." HISTORY OF PRESENT ILLNESS: The patient is a 63-year-old gentleman who has been followed in the pain clinic because of cervical radiculopathy. Epidural steroid injections in the past have been beneficial. He has noticed now return of pain and discomfort in his arms. He notes that the pain is more problematic and he obtained about 95% improvement after the last injection. He has returned today with the desire to undergo another cervical epidural steroid injection to help with pain. He has noticed that when he moves his head. His neck is beginning to lock up. He describes it as horrible the past 2-3 weeks. He rates his pain as a 4/10 today. He also has problems with his hands. He does have findings that are consistent with Raynaud's syndrome. This involves his fingers. His fingers were not as problematic as they were before he started taking the amlodipine medication, but he feels that a higher dose might be helpful since the weather is getting colder. He also has been having some significant problems with burning in his feet. Left is more problematic than right. We would like to consider trying another medication to help with this problem. ALLERGIES: No known drug allergies. CURRENT MEDICATIONS: Nexium 20 mg, hydrocodone 5/325 one p.o. q.4-6 hours, ibuprofen 400 mg, metformin 500 mg b.i.d., amlodipine 5 mg, and gabapentin 600 mg 1 p.o. t.i.d. PAIN CLINIC ASSESSMENT AND PQRS: 1. The patient has some pain in the cervical area that radiates down into his left arm. He is not being treated for rheumatoid arthritis. He does have some pain and discomfort in his feet. 2. Height 6 feet 0, weight 230 pounds, BMI is 31.1. 3. Vital signs: Blood pressure 112/75, heart rate 73, respiratory rate 16, room air saturation 95%, temperature is 97.8. 4. Pain intensity 4/10 in his neck and 10/10 for the discomfort associated with his feet. 5. Blood thinner. The patient is not on a blood thinning medication. 6. Opioids greater than 6 weeks. The patient receives [place] [address] PAIN MANAGEMENT CONSULTATION Name: MAYSKAREL [id number] Admission: 07/12/19 Attend Phys: Edy Waddell MD Discharge: Date of : 53 Report #: [id number] help quell his pain. 7. Recreational drug use: The patient denies. 8. Tobacco: The patient denies use of tobacco. He did smoke in the past, stopped about 4 years ago. 9. Alcohol. The patient denies use of alcoholic beverages on a regular basis. PHYSICAL EXAMINATION: GENERAL: The patient is a well-developed, well-nourished white male. Appears his stated age. He is alert and oriented x 3. His affect is appropriate. His speech is fluent. HEENT: Normocephalic, atraumatic. Extraocular eye muscles intact. Sclerae are nonicteric. Mucous membranes are moist. NECK: Without adenopathy. The patient has some pain and discomfort in the right arm as well as his left arm. He has pain that radiates down into the neck with pain down into the left side, which is most problematic today. HEART: Regular rate, S1. LUNGS: Clear to auscultation. MUSCULOSKELETAL: Upper extremity muscle strength is 5-/5 for the major muscle groups in the upper extremity. The patient has well-healed scar in the lower portion of his back. He has a history of Raynaud's syndrome in his hands, which are beginning to turn colors. Temperature outside today is the 20s. IMPRESSION: 1. Cervical radiculopathy. 2. Lumbar radiculopathy with a history of pain that radiates into his leg in the L4-L5 dermatomal distribution. 3. Cervical spinal stenosis. 4. Displacement of cervical intervertebral disk with radiculopathy. 5. Cervical spondylosis with radiculopathy. 6. Neuropathy of the feet. 7. Well controlled blood sugars. 8. Elevated calcium score. 9. Raynaud's syndrome involving his fingers. The patient is taking amlodipine. RECOMMENDATIONS: We discussed treatment options with the patient. Risks and benefits of a cervical epidural steroid injection were again discussed. The possible complications of the procedure, which could include but are not limited to infection, worsening of pain, no improvement of pain, nerve damage with paralysis or weakness are discussed and the patient elects to proceed. PROCEDURE NOTE: The patient was taken to the procedure area. He was then assisted in getting on the examination table. His back was sterilely prepped with a Betadine solution. Fluoroscopy using anterior, posterior as well as lateral viewing was implemented. The patient's back was sterilely prepped with a Betadine solution. A pillow had been placed under his chest to improve positioning. A 0.25% bupivacaine was infiltrated at the C7-[place] [address] PAIN MANAGEMENT CONSULTATION Name: KAREL MAYS [id number] Admission: 07/12/19 Attend Phys: Edy Waddell MD Discharge: Date of : 53 Report #: [id number] 17-gauge Tuohy with loss of resistance technique was used to gain access to the epidural area after this area had been anesthetized. A 0.25% bupivacaine was then injected, 1 mL. A total of 120 mg triamcinolone was injected. The patient tolerated the procedure well. There were no complications. He remained in the pain clinic for an appropriate amount of time. He will follow up in the future as needed. A script for amlodipine 5 mg tablets, he will take two of these twice a day. He will also try to use gabapentin 600 mg 1 p.o. t.i.d., and the patient will continue with hydrocodone 10/325 one p.o. b.i.d. to help with the pain. He will call us if he has any concerns. We would like to thank you for letting us participate in his care. We hope he continues to improve. <ELECTRONICALLY SIGNED> By: Edy Waddell MD 07/26/19 1448 [id number] 2212N. Leopoldo Waddell MD /nt
== END | disposition home or self-care (01) ==
LOC: M.PC 04:55
DX: M50.10 Cervical disc disorder with radiculopathy, unspecified cervical region (principal); M48.02 Spinal stenosis, cervical region; M47.22 Other spondylosis with radiculopathy, cervical region; G62.9 Polyneuropathy, unspecified; G89.29 Other chronic pain; I73.00 Raynaud's syndrome without gangrene; Z98.890 Other specified postprocedural states; Z79.891 Long term (current) use of opiate analgesic

== ENCOUNTER → 2019-09-20 | Outpatient (CLI) | payer MEDICARE, OTHER ==
--- NOTE | 2019-10-07 09:31 | PAINCON ---
[address] [address] PAIN MANAGEMENT CONSULTATION Name: TABATHAKAREL SHARPE Room: [facility].#: [id number] Admission: 09/20/19 Attend Phys: Edy Waddell MD Discharge: Date of : 51 Report #: [id number] THIS REPORT FOR: //name// cc: Yandel Otoole MD, Dean L. MD ~ THIS REPORT FOR: //name// CC: Yandel Waddell DATE OF SERVICE: 09/20/2019 CHIEF COMPLAINT: Pain in the neck and shoulder area. HISTORY: The patient is a 63-year-old gentleman, who has been followed in the Pain Clinic. As you recall, he suffers from pain in the cervical area as well as the low back area. At this point, he notes that his pain has increased in the neck. He rates it as a 7/10. He also has pain in his feet. He rates it as an 8/10. He has elected to undergo a cervical epidural to help decrease the pain and discomfort he is experiencing. He notes that his neck hurts when he turns it from side to side. His last epidural steroid injection in the cervical area was beneficial. He would like to proceed with another. He notes when he looks up, this can be quite painful. ALLERGIES: No known drug allergies. CURRENT MEDICATIONS: Nexium 20 mg, hydrocodone 5/325 one p.o. every 4-6 hours, ibuprofen 400 mg, metformin 500 mg b.i.d., amlodipine 5 mg, and gabapentin 600 mg t.i.d. PAIN CLINIC ASSESSMENT AND PQRS: 1. The patient has some pain in the cervical area. This is radiating down to his left arm. He is not being treated for rheumatoid arthritis. Does have some pain and discomfort in his feet. 2. Height 6 feet 0, weight 230 pounds, BMI is 30.9. 3. Vital signs: Blood pressure 126/65, heart rate 66, respiratory rate 16, room air saturation is 96%, and temperature 97.8. Pain score 8 for feet and 10 for neck. 4. Blood thinner. The patient is not on a blood thinning medication. 5. Opioids greater than 6 weeks. The patient received medication from one source the Pain Clinic. 6. Recreational drug use: The patient denies. 7. Tobacco: The patient denies use of tobacco. The patient did smoke in the past, stopped 4 years ago. 8. Alcohol. The patient denies use of alcoholic beverages [place] [address] PAIN MANAGEMENT CONSULTATION Name: KAREL MAYS Room: [facility]#: [id number] Admission: 09/20/19 Attend Phys: Edy Waddell MD Discharge: Date of : 53 Report #: [id number] PHYSICAL EXAMINATION: GENERAL: The patient is a well-developed, well-nourished white male. Appears his stated age. He is alert and oriented x 3. His affect is appropriate. Speech is fluent. HEENT: Normocephalic, atraumatic. Extraocular eye muscles intact. Sclerae nonicteric. Mucous membranes are moist. NECK: Without adenopathy or JVD. The patient does have some pain and discomfort in his right side with radiation down into the left as well as the right arm. Notes some increased discomfort with left and right lateral rotation, left and right lateral bending and looking up. HEART: Regular rate. S1, S2. LUNGS: Clear to auscultation. MUSCULOSKELETAL: The patient without significant scoliosis, kyphosis or lordosis. Upper extremity muscle strength overall in general is 5/5 for the major muscle groups. The patient has a well-healed scar in the lower portion of his back. He has a history of Raynaud's syndrome involving his hands, not very problematic today. IMPRESSION: 1. Cervical radiculopathy. 2. Lumbar radiculopathy with history of pain and radiculopathy into the legs in the L4-L5 dermatomal distribution. 3. Cervical spinal stenosis. 4. Displacement of cervical intervertebral disk with radiculopathy. 5. Cervical spondylosis with radiculopathy. 6. Neuropathy of the feet. 7. Well controlled blood sugars. 8. Elevated calcium score. 9. Raynaud's syndrome involving his fingers. RECOMMENDATIONS: We discussed treatment options with the patient. Risks and benefits of an epidural steroid injection in the cervical area were discussed. Possible complications of the procedure, which could include but are not limited to infection, worsening pain, no improvement in pain and the patient elects to proceed. PROCEDURE NOTE: The patient was taken to the procedure area. He was then assisted in getting on examination table. His back was sterilely prepped with a Betadine solution in the cervical area. A pillow had been placed under his shoulders to improve positioning. Fluoroscopy using anterior, posterior as well as lateral viewing were implemented. A 25-gauge needle was then used to anesthetize the area at C7-T1. A 17-gauge Tuohy with loss of resistance technique using a midline approach at the C7-T1 interspace was undertaken. A total of 120 mg triamcinolone was injected. The patient tolerated the procedure well. There were no complications. He remained in the Pain Clinic for an appropriate amount of time. His pain decreased from 7 to 2-3 at the time of [facility] [address] [place] [address] PAIN MANAGEMENT CONSULTATION Name: MAYSKAREL ANNEMARIE Room: [facility]#: [id number] Admission: 09/20/19 Attend Phys: Edy Waddell MD Discharge: Date of : 51 Report #: [id number] discharge. A total of 20 seconds fluoroscopy time was used. We would like to thank you for letting us participate in his care. We hope he continues to improve. <ELECTRONICALLY SIGNED> By: Edy Waddell MD 10/07/19 0931 1427 1651N. Leopoldo Waddell MD /nt
== END | disposition home or self-care (01) ==
LOC: M.PC 08:08
DX: M50.10 Cervical disc disorder with radiculopathy, unspecified cervical region (principal); M48.02 Spinal stenosis, cervical region; M47.22 Other spondylosis with radiculopathy, cervical region; G62.9 Polyneuropathy, unspecified; Z98.890 Other specified postprocedural states; Z79.899 Other long term (current) drug therapy; Z79.891 Long term (current) use of opiate analgesic; Z87.891 Personal history of nicotine dependence

== ENCOUNTER → 2019-12-08 | Outpatient (CLI) | payer MEDICARE, OTHER ==
--- NOTE | 2019-12-21 15:49 | PAINCON ---
[address] [address] PAIN MANAGEMENT CONSULTATION Name: TABATHAKAREL ANNEMARIE Room: [facility].#: [id number] Admission: 12/08/19 Attend Phys: Edy Waddell MD Discharge: Date of : 51 Report #: [id number] THIS REPORT FOR: //name// cc: Yandel Otoole MD, Dean L. MD ~ THIS REPORT FOR: //name// CC: Yandel Waddell DATE OF SERVICE: 12/08/2019 PRIMARY CARE PHYSICIAN: Yandel Otoole MD CHIEF COMPLAINT: Return of neck and arm pain. HISTORY: The patient is a 64-year-old gentleman who has been seen in the pain clinic because of cervical radiculopathy. He also has pain and discomfort in the back. He has had back surgery. He has some burning and discomfort in his feet. Overall, his pain in the neck area has become more problematic. He would like to proceed with a cervical epidural steroid injection. He continues to work out. He rates his pain as a 7/10. He continues to find gabapentin and hydrocodone helpful. He notes walking, sitting, standing and other activities can exacerbate his pain. His medications are beneficial. He notes that use of rest can decrease pain and discomfort as well. He has returned today with the desire to undergo a cervical epidural steroid injection because of increasing pain in his shoulders and down into his arms bilaterally. ALLERGIES: No known drug allergies. CURRENT MEDICATIONS: Nexium 20 mg, hydrocodone 5/325 one p.o. every 4-6 hours p.r.n., ibuprofen 400 mg, metformin 500 mg b.i.d., amlodipine 5 mg, gabapentin 600 mg t.i.d. PAIN CLINIC ASSESSMENT AND PQRS: 1. The patient has some pain and discomfort in the cervical area. There is pain radiating down to his left arm. He is not being treated for rheumatoid arthritis. He does have some pain and discomfort in his feet. 2. Height 6 feet 0 inches, weight 240 pounds, BMI is 32.7. 3. Vital signs: Blood pressure 117/76, heart rate 67, respiratory rate 16, room air saturation 94%, temperature 97.6. 4. Pain intensity 7/10. 5. Fall history: The patient has not fallen in the last 3 weeks. 6. Blood thinner. The patient is not on a blood thinning medication. 7. Opioids greater than 6 weeks. The patient receives medication [place] [address] PAIN MANAGEMENT CONSULTATION Name: MAYSKAREL Room: [facility]#: [id number] Admission: 12/08/19 Attend Phys: Edy Waddell MD Discharge: Date of : 51 Report #: [id number] 8. Recreational drug use. The patient denies. 9. Tobacco: The patient denies use of tobacco. He did smoke, but stopped smoking 4 years ago. 10. Alcohol. The patient denies use of alcohol on a regular basis. PHYSICAL EXAMINATION: GENERAL: The patient is a well-developed, well-nourished white male. Appears his stated age. He is alert and oriented x 3. His affect is appropriate. Speech is fluent. HEENT: Normocephalic, atraumatic. Extraocular eye muscles intact. Sclerae nonicteric. Mucous membranes are moist. The patient is wearing a mask. NECK: Without adenopathy. The patient does have some pain and discomfort in the left as well as the right arm. Note some increased discomfort in the arms when looking up, bending, left and right, as well as with rotation. HEART: Regular rate. S1, S2. LUNGS: Clear to auscultation. MUSCULOSKELETAL: The patient without significant scoliosis, kyphosis or lordosis. Muscle strength in the upper extremities 5-/5 for the major muscle groups. The patient has a well-healed scar in the lower portion of his back. Has a history of Raynaud's syndrome involving his hands, not problematic today given the temperature is warm outside. IMPRESSION: 1. Cervical radiculopathy. 2. Lumbar radiculopathy with history of pain and radiculopathy into the legs in the L4-L5 dermatomal distribution. 3. Cervical spinal stenosis. 4. Displacement of cervical intervertebral disk with radiculopathy. 5. Cervical spondylosis with radiculopathy. 6. Neuropathy of the feet. 7. Well controlled blood sugars. 8. Elevated calcium score. 9. Raynaud's syndrome involving the fingers. RECOMMENDATIONS: We discussed treatment options with the patient. Risks and benefits of a cervical epidural steroid injection were discussed. Possible complications of the procedure, which could include infection, muscle soreness, bleeding, nerve damage, spinal headache were discussed and discussed the caveat of COVID-19. There is a possibility that should he get infected with the virus, he may have a more difficult time recovering. The patient and I have discussed the possible complications. He feels that his pain is problematic. He is staying at home. He has not been treated out. He feels that given his pain is elevated at this juncture, he would like to proceed with a cervical epidural steroid injection. Risks have been accepted and the patient elects to proceed. PROCEDURE NOTE: The patient was taken to the procedure area. He was then [facility] [address] [place] [address] PAIN MANAGEMENT CONSULTATION Name: TABATHAKAREL SHARPE Room: [facility].#: [id number] Admission: 12/08/19 Attend Phys: Edy Waddell MD Discharge: Date of : 51 Report #: [id number] assisted in getting on the examination table. Fluoroscopy using anterior, posterior as well as lateral viewing were implemented. A pillow was placed under the shoulders to improve positioning. A 17-gauge Tuohy was then used to gain access to the epidural space. This area had been previously anesthetized at the C7-T1 interspace using a 23-gauge needle and 0.25% bupivacaine. After appropriate placement, a total of 120 mg triamcinolone was injected. The patient tolerated the procedure well. He remained in the pain clinic for an appropriate amount of time. A total of 22 seconds fluoroscopy time was used. A script for his medications has been provided. The patient will continue with hydrocodone 10 mg 1 p.o. ____ b.i.d. as needed. He has been given 2 months' prescription for this medication. He will call us if he has any concerns. We would like to thank you for letting us participate in his care. We will also continue with gabapentin 600 mg t.i.d. <ELECTRONICALLY SIGNED> By: Edy Waddell MD 12/21/19 1549 [id number]. Leopoldo Waddell MD /[facility]
== END | disposition home or self-care (01) ==
LOC: M.PC 04:08
PROVIDERS: ATTEND Anesthesiology Pain Medicine
DX: M50.10 Cervical disc disorder with radiculopathy, unspecified cervical region (principal); M48.02 Spinal stenosis, cervical region; M47.22 Other spondylosis with radiculopathy, cervical region; G89.29 Other chronic pain; Z98.890 Other specified postprocedural states; Z79.899 Other long term (current) drug therapy

== ENCOUNTER → 2020-03-08 | Outpatient (CLI) | payer MEDICARE, OTHER ==
--- NOTE | 2020-03-27 15:37 | PAINCON ---
[address] [address] PAIN MANAGEMENT CONSULTATION Name: KAREL MAYS Room: [facility].#: [id number] Admission: 03/08/20 Attend Phys: Edy Waddell MD Discharge: Date of : 51 Report #: [id number] THIS REPORT FOR: //name// cc: Yandel Otoole MD, Dean L. MD ~ THIS REPORT FOR: //name// CC: Yandel Waddell DATE OF SERVICE: 03/08/2020 CHIEF COMPLAINT: "Return of pain down in the neck, I would like to have another injection." HISTORY: The patient is a 64-year-old gentleman, who has been followed in the Pain Clinic because of cervical radiculopathy. He also has lumbar radiculopathy. Today, the cervical radiculopathy is most problematic and he would like to proceed with another injection. He feels that his current use of gabapentin continues to be helpful with his foot pain. He still has neck pain. He is experiencing pain that is radiating down into his right arm. He rates his discomfort as a 6/10. He has returned today with the hope of undergoing another cervical injection. ALLERGIES: No known drug allergies. CURRENT MEDICATIONS: Nexium 20 mg, hydrocodone 5/325 one p.o. every 4-6 hours p.r.n., ibuprofen 400 mg, metformin 500 mg b.i.d., amlodipine 5 mg, gabapentin 600 mg t.i.d. PAIN CLINIC ASSESSMENT AND PQRS: 1. The patient has some pain and discomfort in the cervical area. There is pain radiating down into his right arm. He is not being treated for rheumatoid arthritis. He does have some pain and discomfort, which is chronic and neuropathic, in his feet. 2. Height 6 feet 0 inch, weight 240 pounds, BMI is 32. 3. Vital Signs: Blood pressure 100/63, heart rate 88, respiratory rate 16, room air saturation is 94%, temperature 98.5. 4. Pain intensity: 01/03. 5. Fall history: The patient has not fallen in the last 3 months. 6. Blood thinner: The patient is not on a blood thinning medication. 7. Opioids greater than 6 weeks: The patient receives medication from the Pain Clinic. 8. Risk assessment tool: Low for opioid use. 9. Tobacco: The patient denies use of tobacco, stopped 4 years ago. 10. Recreational drug use: The [place] [address] PAIN MANAGEMENT CONSULTATION Name: KARLE MASY Room: [facility]#: [id number] Admission: 03/08/20 Attend Phys: Edy Waddell MD Discharge: Date of : 53 Report #: [id number] 11. Alcohol: The patient denies use of alcoholic beverages on a regular basis. PHYSICAL EXAMINATION: GENERAL: The patient is a well-developed, well-nourished, white male. Appears his stated age. He is alert and oriented x 3. His affect is appropriate. Speech is fluent. HEENT: Normocephalic, atraumatic. Extraocular eye muscles intact. Sclerae nonicteric. Mucous membranes are moist. The patient is wearing a mask. He complains of pain and discomfort in his neck with pain radiating down into the right arm. Notes some sensory changes. HEART: Regular rate. S1 and S2. LUNGS: Clear to auscultation. ABDOMEN: Nontender. MUSCULOSKELETAL: The patient is without significant scoliosis, kyphosis or lordosis. Upper extremity muscle strength is judged to be 5-/5 for the major muscle groups in the upper extremity. The patient has a well-healed scar in the lower portion of his back. He is not complaining of lumbar radicular pain today. Has history of Raynaud's syndrome involving the hands, not problematic given this is summer month and things are warm. IMPRESSION: 1. Cervical radiculopathy. 2. History of lumbar radiculopathy with pain into the legs in the L4-L5 dermatomal distribution. 3. Cervical spinal stenosis. 4. Displacement of cervical intervertebral disk with radiculopathy. 5. Cervical spondylosis with radiculopathy. 6. Neuropathy of the feet. 7. Well-controlled blood sugars. 8. Elevated calcium score. 9. Raynaud's syndrome involving fingers. RECOMMENDATIONS: We discussed treatment options with the patient. Risks and benefits of a cervical epidural steroid injection were discussed. Possible complications of the procedure, which could include but are not limited to infection, worsening of pain, no improvement in pain, nerve damage, bleeding, and headache were discussed and the patient elects to proceed. PROCEDURE NOTE: The patient was taken to the procedure area. He was then assisted in getting on the examination table. His back was sterilely prepped in the cervical area. Fluoroscopy using anterior, posterior as well as lateral viewing were implemented. A skin wheal C7-T1 was performed. A 17-gauge Tuohy with loss of resistance technique was used to gain access to the epidural space. A total of 120 mg triamcinolone was injected. The patient tolerated the procedure well. There were no complications. He remained in the pain clinic for an appropriate amount of time. Approximately 26 seconds fluoroscopy time [facility] [address] [place] [address] PAIN MANAGEMENT CONSULTATION Name: MAYSKAREL Stella Room: [facility]#: [id number] Admission: 03/08/20 Attend Phys: Edy Waddell MD Discharge: Date of : 53 Report #: [id number] was used. The patient will follow up in the future as needed. A script for his medications of gabapentin 600 mg 2 tablets t.i.d., Norvasc 5 mg for Raynaud's disease, hydrocodone 10/325 one p.o. b.i.d. has been provided for the next 2 months. He feels overall that his pain in the feet have improved a little better. He did get some diabetic insoles for his shoes. We would like to thank you for letting us participate in his care. We hope he continues to improve. <ELECTRONICALLY SIGNED> By: Edy Waddell MD 03/27/20 1537 [id number]. Leopoldo Waddell MD /nt
== END | disposition home or self-care (01) ==
LOC: M.PC 01:44
PROVIDERS: ATTEND Anesthesiology Pain Medicine
DX: M50.10 Cervical disc disorder with radiculopathy, unspecified cervical region (principal); M47.22 Other spondylosis with radiculopathy, cervical region; M48.02 Spinal stenosis, cervical region; G62.9 Polyneuropathy, unspecified; Z98.890 Other specified postprocedural states; Z79.899 Other long term (current) drug therapy; Z87.891 Personal history of nicotine dependence

== ENCOUNTER → 2020-03-20 | Outpatient (CLI) | payer MEDICARE, OTHER | LOC: M.CT 03-19 12:09 → M.LAB 06:53 → M.CT 08:00 | PROVIDERS: ATTEND Registered Nurse | DX: I77.810 Thoracic aortic ectasia (principal); K76.0 Fatty (change of) liver, not elsewhere classified; J98.11 Atelectasis; I25.10 Atherosclerotic heart disease of native coronary artery without angina pectoris; I51.7 Cardiomegaly ==

== ENCOUNTER → 2020-05-24 | Outpatient (CLI) | payer MEDICARE, OTHER ==
--- NOTE | ~2020-05-24 | PAINCON ---
[address] [address] PAIN MANAGEMENT CONSULTATION Name: KAREL MAYS Room: [facility]#: [id number] Admission: 05/24/20 Attend Phys: Edy Waddell MD Discharge: Date of : 51 Report #: [id number] THIS REPORT FOR: //name// cc: Yandel Otoole MD, Dean L. MD ~ CC: Yandel Waddell DATE OF SERVICE: 05/24/2020 CHIEF COMPLAINT: Return of cervical neck pain. HISTORY: The patient is a 64-year-old gentleman who has been followed in the pain clinic. As you recall, he suffers from both cervical pain and lumbar pain. He returns today indicating that his pain has increased in the neck area. He has returned to the pain clinic with hopes of undergoing another epidural steroid injection. Pain is radiating down into his right arm. He also has pain in his neck and as you may recall, neurogenic pain in his feet. He feels that the foot pain is still quite problematic. The weather has been getting colder. He does have symptoms consistent with Raynaud's syndrome involving his fingers. He feels that the Norvasc medication helps with that change in blood flow. He has returned today and would like to proceed with an epidural steroid injection. He rates his pain as a 7-8/10. ALLERGIES: No known drug allergies. CURRENT MEDICATIONS: Nexium 20 mg, hydrocodone 5/325 one p.o. every 4-6 hours, ibuprofen 400 mg, metformin 500 mg b.i.d., amlodipine 5 mg, gabapentin 600 mg t.i.d. PAIN CLINIC ASSESSMENT AND PQRS: 1. The patient has some pain and discomfort in the cervical areas. Pain is radiating down into his right arm. It also has radiated down to the left side. The patient is not being treated for rheumatoid arthritis. He does have some discomfort in his feet because of chronic neuropathy. 2. Height 6 feet 0 inches, weight 219 pounds, BMI is 29.6. 3. Vital Signs: Blood pressure 137/60, heart rate 88, respiratory rate 16, room air saturation 95%, temperature 97.7. 4. Pain intensity 7-810. 5. Fall history: The patient has not fallen in the last 3 months. 6. Blood thinner. The patient is not on a blood thinning medication. 7. Hypertension. The patient is not being treated for hypertension. 8. Risk assessment tool, low for opioid use. 9. Recreational drug use: The patient denies. 10. Alcohol. The patient denies use of alcoholic beverages [place] [address] PAIN MANAGEMENT CONSULTATION Name: KAREL MAYS Room: [facility]#: [id number] Admission: 05/24/20 Attend Phys: Edy Waddell MD Discharge: Date of : 53 Report #: [id number] PHYSICAL EXAMINATION: GENERAL: The patient is a well-developed, well-nourished white male. Appears his stated age. He is alert and oriented x 3. His affect is appropriate. Speech is fluent. HEENT: Normocephalic, atraumatic. Extraocular eye muscles are intact. Sclerae nonicteric. Mucous membranes are moist. The patient is wearing a mask. He complains of pain in the neck with radiation down into the right arm as well as into the left arm. He notes some sensory changes. HEART: Regular rate. S1, S2. LUNGS: Clear to auscultation. ABDOMEN: Nontender. MUSCULOSKELETAL: The patient without significant scoliosis, kyphosis or lordosis. 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 He has a well-healed scar in the posterior portion of his low back area. Hands do not show significant blood flow changes today. IMPRESSION: 1. Cervical radiculopathy. 2. History of lumbar radiculopathy with pain in the lumbar area. 3. Cervical spinal stenosis. 4. Displacement of cervical intervertebral disk with radiculopathy. 5. Cervical spondylosis with radiculopathy. 6. Neuropathy of the feet. 7. Well controlled blood sugars. 8. Elevated calcium score. 9. Raynaud's syndrome involving fingers. RECOMMENDATIONS: We discussed treatment options with the patient. At this juncture, we will proceed with an epidural steroid injection in the cervical area. Risks and benefits of the procedure were discussed. They include but are not limited to infection, worsening pain, no improvement in pain, nerve damage, bleeding, no improvement in pain and the patient elects to proceed. We discussed the problems with COVID-19. The patient is receiving an epidural injection. Steroids can decrease one's immune response. Should the patient become infected, he may have a more difficult time with the virus. He elects to proceed. PROCEDURE NOTE: The patient was taken to the procedure area. He was then assisted in getting on examination table. A pillow was placed under his shoulders. His neck was sterilely prepped with a Betadine solution at the C7-T1 interspace. Fluoroscopy using anterior, posterior as well as lateral viewing were implemented. A total of 120 mg triamcinolone was injected. The patient tolerated the procedure well. He will monitor his blood sugar levels. He will call us if he has any concerns. A script for his gabapentin [place] [address] PAIN MANAGEMENT CONSULTATION Name: KAREL MAYS Room: [facility]#: [id number] Admission: 05/24/20 Attend Phys: Edy Waddell MD Discharge: Date of : 51 Report #: [id number] medication have been written. He will also continue with the Norvasc 5 mg p.r.n. for help with the vascular changes associated with Raynaud's syndrome. By: [id number]. Leopoldo Waddell MD /nt
== END | disposition home or self-care (01) ==
LOC: M.PC 08:19
PROVIDERS: ATTEND Anesthesiology Pain Medicine
DX: M54.2 Cervicalgia (principal); M48.061 Spinal stenosis, lumbar region without neurogenic claudication; M47.22 Other spondylosis with radiculopathy, cervical region; G62.9 Polyneuropathy, unspecified; Z79.899 Other long term (current) drug therapy

== ENCOUNTER → 2020-10-11 | Outpatient (CLI) | payer MEDICARE, OTHER ==
[~2020-10-11] MED LIST changes: +ASPIRIN EC81 M1 PO; -ASPIRIN325 PO
== END | disposition home or self-care (01) ==
LOC: M.PC 08:34
PROVIDERS: ATTEND Anesthesiology Pain Medicine
DX: M50.10 Cervical disc disorder with radiculopathy, unspecified cervical region (principal); M48.02 Spinal stenosis, cervical region; M47.22 Other spondylosis with radiculopathy, cervical region; E11.40 Type 2 diabetes mellitus with diabetic neuropathy, unspecified; K21.9 Gastro-esophageal reflux disease without esophagitis; Z98.890 Other specified postprocedural states; Z79.899 Other long term (current) drug therapy; Z87.891 Personal history of nicotine dependence; Z96.642 Presence of left artificial hip joint

== ENCOUNTER → 2021-01-01 | Outpatient (CLI) | payer MEDICARE, OTHER | END | disposition home or self-care (01) | LOC: M.PC 08:13 | PROVIDERS: ATTEND Anesthesiology Pain Medicine | DX: M50.10 Cervical disc disorder with radiculopathy, unspecified cervical region (principal); M47.22 Other spondylosis with radiculopathy, cervical region; M48.02 Spinal stenosis, cervical region; G89.29 Other chronic pain; G62.9 Polyneuropathy, unspecified; E11.9 Type 2 diabetes mellitus without complications; Z98.890 Other specified postprocedural states; Z79.899 Other long term (current) drug therapy; Z96.652 Presence of left artificial knee joint; Z87.891 Personal history of nicotine dependence ==

== ENCOUNTER → 2021-01-07 | Outpatient (CLI) | payer MEDICARE, OTHER ==
--- NOTE | 2021-01-08 08:12 | CARDNUC ---
[place] [address] CARDIAC NUCLEAR IMAGING REPORT Name: KAREL MAYS Room: [facility]#: [id number] Admission: 01/07/21 Attend Phys: Chavez Alfaro, Discharge: Date of : 51 Date of Service: 01/08/[address] Report #: [id number] THIS REPORT FOR: cc: Yandel Otoole MD, Dean L. MD [place],Chavez Pizano MD [facility] ~ APPROVED REPORT Study performed: 01/07/2021 09:13:54 Exam: Nuclear Stress Test Indication: Dyspnea, Calcium score 1720, Aortic Ectasia Patient Location: Out-Patient Stress Tech: Alia Raya Stress Nurse: Teresa Clark R.N. Ht: 6 ft 0 in Wt: 224 lbs BSA: 2.24 m2 BMI: 30.37 Medical History Medical History: Chest tightness, dyspnea, calcium score 1720, aortic ectasia, neuropathy, bilateral knee replacements, raynauds, HX DM, Bradycardia, HTN, HLD, PVD, past smoker, knee/back/neck pain, CAD non obstructive. Medications: Amlodipine, ASA 81 mg, Atorvastatin. Allergies: No known drug allergies Cardiac Risk Factors: Age, FHX of CAD, HTN, Hyperlipidemia, SOB, PVD, past smoker, bradycardia, aortic ectasia, calcium score 1720. Previous Cardiac Procedures: None Pretest Chest Pain Characteristics: No chest pain Exercise History: Indeterminate Physical Disabilities: Knee, back and neck pain, neuropathy. Meds Held (24 hrs): Amlodipine Stress Test Details Stress Test: Pharmacologic stress was paired with low level exercise. Reason for pharmacologic stress test: Knee, back and neck pain, neuropathy.. HR Resting HR: 48 bpm Max Heart Rate (APMHR): 153 bpm Max HR Achieved: 111 bpm Target HR (85% APMHR): 130 bpm % of APMHR: 72 [place] [address] CARDIAC NUCLEAR IMAGING REPORT Name: MAYSKAREL Room: [facility]#: [id number] Admission: 01/07/21 Attend Phys: Chavez Alfaro, Discharge: Date of : 51 Date of Service: 01/08/21 0812 Report #: [id number] Recovery HR: 57 bpm BP Resting BP: 146/84 mmHg Max BP: 189/98 mmHg ECG Resting ECG: Sinus Rhythm Stress ECG: Sinus Tachycardia ST Change: None Arrhythmia: None Recovery ECG: Sinus Rhythm Recovery ST Change: None Recovery Arrhythmia: None Clinical Reason for Termination: Completed protocol Stress Symptoms: Chest tightness 3/10, dyspnea. Exercise duration: 4 min 00 sec Exercise capacity: 2.30 METs Patient reported mild chest tightness with Lexiscan infusion. Nurse Comments A 65 year old male presented for a walking Lexiscan. Test well tolerated. Recovery unremarkable. Patient was stable and stated he felt good when escorted to Nuclear Medicine for imaging. Stress ECG Conclusion Baseline twelve-lead EKG shows sinus rhythm without significant ST segment or T wave abnormality. EKG is obtained during and post Lexiscan infusion shows sinus rhythm and sinus tachycardia with no significant ST segment or T wave changes when compared to baseline. There were no stress-induced arrhythmias. NM EXAM: Myocardial Perfusion REST/STRESS Imaging Protocol: Rest Tc-99m/Stress Tc-99m 1 day Resting Data Rest SPECT myocardial perfusion imaging was performed in supine position 60 minutes following the intravenous injection of 10.3 mCi of Tc-99m Sestamibi. Time of rest injection: 07:35 The images were gated to evaluate regional wall motion and calculate left ventricular ejection fraction. Administration Route: IV Administration Site: [place] [address] CARDIAC NUCLEAR IMAGING REPORT Name: KAREL MAYS Room: [facility]#: [id number] Admission: 01/07/21 Attend Phys: Chavez Alfaro, Discharge: Date of : 51 Date of Service: 01/08/21 0812 Report #: [id number] Pharmacologic Stress Pharmacologic stress test was performed by injecting Regadenoson 0.4 mg IV push followed by the intravenous injection of 33.0 mCi of Tc-99m Sestamibi. Time of stress injection: 09:45 Administration Route: IV Administration Site: Right Hand Heart Rate at time of stress injection: 111 bpm. Gated Stress SPECT was performed 40 minutes after stress injection. The images were gated to evaluate regional wall motion and calculate left ventricular ejection fraction. Prone imaging was performed. Study Quality Study: Fair Artifact: Moderate Diaphragmatic artifact Study Data At rest, the left ventricular ejection fraction was 54%.. Post stress, the left ventricular ejection was 51%.. TID = 1.08. Perfusion Fusion images obtained in the supine position at rest and post Lexiscan stress show a large in size moderate to severe intensity defect in the inferior wall that resolved for the most part with post stress prone imaging suggesting diaphragmatic attenuation artifact. There were no other significant fixed or reversible defects identified. Wall Motion Normal left ventricular wall motion. Nuclear Conclusion ECG Findings: negative for ischemia Clinical Findings: equivocal Nuclear Findings: negative for ischemia Exercise Capacity: not assessed Left Ventricular Function: normal Perfusion images showed no reversible defects to suggest ischemia. Significant diaphragmatic attenuation artifact is noted. Post-rest prone imaging shows relatively uniform uptake of the radioisotope throughout the myocardium. Left ventricular systolic function appears normal on gated studies. This is not [place] [address] CARDIAC NUCLEAR IMAGING REPORT Name: KAREL MAYS Room: [facility]#: [id number] Admission: 01/07/21 Attend Phys: Chavez Alfaro, Discharge: Date of : 51 Date of Service: 01/08/2112 Report #: [id number] <Conclusion> Baseline twelve-lead EKG shows sinus rhythm without significant ST segment or T wave abnormality. EKG is obtained during and post Lexiscan infusion shows sinus rhythm and sinus tachycardia with no significant ST segment or T wave changes when compared to baseline. There were no stress-induced arrhythmias. <ELECTRONICALLY SIGNED> By: Chavez Alfaro MD, FACC 01/08/21811 1 1 Chavez Alfaro MD, FACC /INF
== END ==
LOC: M.CT 01-04 14:33 → M.NUC 07:09 → M.CT 11:00
PROVIDERS: ATTEND Internal Medicine Cardiovascular Disease
DX: J98.4 Other disorders of lung (principal); I25.10 Atherosclerotic heart disease of native coronary artery without angina pectoris; R00.0 Tachycardia, unspecified

== ENCOUNTER → 2021-06-18 | Outpatient (CLI) | payer MEDICARE, OTHER | END | disposition home or self-care (01) | LOC: M.PC 08:33 | PROVIDERS: ATTEND Anesthesiology Pain Medicine | DX: M50.10 Cervical disc disorder with radiculopathy, unspecified cervical region (principal); M48.02 Spinal stenosis, cervical region; M47.22 Other spondylosis with radiculopathy, cervical region; E11.9 Type 2 diabetes mellitus without complications; G62.9 Polyneuropathy, unspecified; K21.9 Gastro-esophageal reflux disease without esophagitis; Z98.890 Other specified postprocedural states; Z79.899 Other long term (current) drug therapy; Z87.891 Personal history of nicotine dependence ==